=== PATIENT | female | born 1990 | race Caucasian/White ===

== ENCOUNTER 2018-10-22 10:12 | Emergency (ER) | payer OTHER ==
--- NOTE | 2018-10-22 10:47 | ED ---
General Adult HPI - General Chief complaint: Headache Stated complaint: ENT Time Seen by Provider: 10/22/18 10:15 Source: family, RN notes reviewed Mode of arrival: ambulatory Limitations: no limitations - History of Present Illness Initial comments: This is a 28-year-old female presents emergency Department complaining of a headache and pressure behind the right eye. Patient states this is consistent with her migraine headaches except for the fact that for the last 3 months she' s had it at some point every day. Patient states she also has a history of fibromyalgia and some various autoimmune disorder. Patient states she is also ALLERGIC to ketorolac Imitrex and antihistamines. Patient states she was post have CAT scan on Thursday of her sinuses but since she was on her. She didn't want ago. Patient states the pain is typical in the features of the headache are typical of her normal migraines. Patient thinks she has a sinus issue and that is why she is post get a CAT scan of her sinuses. Patient denies any change in vision patient denies any fever or chills patient denies any neck stiffness. Patient denies any chest pain difficulty breathing shortest breath. She denies any abdominal pain patient denies nausea vomiting diarrhea. - Related Data Home Medications Medication Instructions Recorded Confirmed ALPRAZolam [Xanax] 0.5 mg PO DAILY PRN 10/22/18 10/22/18 Gabapentin [Neurontin] 100 mg PO DAILY 10/22/18 10/22/18 Gabapentin [Neurontin] 200 mg PO HS 10/22/18 10/22/18 HYDROcodone/APAP 5-325MG [[place] 1 tab PO Q6H PRN 10/22/18 10/22/18 5-325] Ibuprofen [Motrin Ib] 800 mg PO Q6H PRN 10/22/18 10/22/18 Omeprazole 20 mg PO DAILY 10/22/18 10/22/18 Allergies Allergy/AdvReac Type Severity Reaction Status Date / Time Antihistamines - Alkylamine Allergy Anaphylaxis Verified 10/22/18 10:48 sumatriptan [From Imitrex] Allergy Anaphylaxis Verified 10/22/18 10:48 ketorolac [From Toradol] AdvReac Rapid Verified 10/22/18 10:48 Heart Rate prochlorperazine AdvReac Confusion Verified 10/22/18 10:48 [From Compazine] Review of Systems ROS Statement: Those systems with pertinent positive or pertinent negative responses have been documented in the HPI. ROS Other: All systems not noted in ROS Statement are negative. Past Medical History Past Medical History: Fibromyalgia History of Any Multi-Drug Resistant Organisms: None Reported Past Surgical History: No Surgical Hx Reported Past Psychological History: Anxiety Smoking Status: Current every day smoker Past Alcohol Use History: None Reported Past Drug Use History: Marijuana General Exam - General Exam Comments Initial Comments: GENERAL: Patient is well-developed and well-nourished. Patient is nontoxic and well- hydrated and is in mild distress. ENT: Neck is soft and supple. No significant lymphadenopathy is noted. Oropharynx is clear. Moist mucous membranes. Neck has full range of motion without eliciting any pain. EYES: The sclera were anicteric and conjunctiva were pink and moist. Extraocular movements were intact and pupils were equal round and reactive to light. Eyelids were unremarkable. PULMONARY: Unlabored respirations. Good breath sounds bilaterally. No audible rales rhonchi or wheezing was noted. CARDIOVASCULAR: There is a regular rate and rhythm without any murmurs gallops or rubs. SKIN: Skin is clear with no lesions or rashes and otherwise unremarkable. NEUROLOGIC: Patient is alert and oriented x3. Cranial nerves II through XII are grossly intact. Motor and sensory are also intact. Normal speech, volume and content. Symmetrical smile. MUSCULOSKELETAL: Normal extremities with adequate strength and full range of motion. LYMPHATICS: No significant lymphadenopathy is noted PSYCHIATRIC: Normal psychiatric evaluation. Limitations: no limitations Course Vital Signs 10/22/18 10:14 Temperature 98 F Pulse Rate 93 Respiratory 20 Rate Blood Pressure 136/90 O2 Sat by Pulse 99 Oximetry Medical Decision Making - Medical Decision Making Patient does not appear in very much distress at all. Patient states prior to arrival she took Motrin and Prilosec Equality and Xanax Patient's CT of the brain shows no acute abnormality. Patient's CT of the sinuses showed a cyst in the right maxillary sinus which she states has been there for years. But there is no acute sinusitis or mastoiditis. When I walked in the room the patient was eating crackers and drinking pop. Patient states that the old medical did help her headache slightly. Disposition Clinical Impression: Migraine Disposition: HOME SELF-CARE Condition: Good Instructions (If sedation given, give patient instructions): Acute Headache (ED ) Is patient prescribed a controlled substance at d/c from ED?: No Referrals: Salas Anglin MD [Primary Care Provider] - 1-2 days Time of Disposition: 12:19
--- NOTE | 2018-10-22 11:19 | CT ---
EXAMINATION TYPE: CT brain wo con DATE OF EXAM: 10/22/2018 COMPARISON: 11/07/2015 MRI INDICATION: sinusitis, pain behind Rt eye, migraine DLP: 1336.2 mGycm, Automated exposure control for dose reduction was used. CONTRAST: None CT of the brain is performed utilizing 3 mm thick sections through the posterior fossa and 3 mm thick sections through the remaining calvarium. Study is performed within 24 hours of arrival to the hosp ital. No abnormal hyperdensity is present to suggest an acute intracranial hemorrhage. No mass lesion is evident. No acute infarcts are evident. Ventricles and sulci are appropriate for the patient age. Paranasal sinuses and mastoid air cells within the [id number] are clear. IMPRESSIONS: 1. Normal CT Brain
--- NOTE | 2018-10-22 11:21 | CT ---
EXAMINATION TYPE: CT sinus wo con DATE OF EXAM: 10/22/2018 COMPARISON: CT brain same date HISTORY: sinusitis, pain behind Rt eye, migraine CT DLP: 1336.2 mGycm CONTRAST: 0 mL of Isovue 300 The paranasal sinuses are examined in the axial plane at 2 mm thick sections. Reconstructed images i n the coronal plane were obtained. There is dental amalgam scatter artifact There is a retention cyst within the inferior aspect of the right maxillary sinus. Left maxillary sin us is clear. The ethmoid air cells are clear. The sphenoid sinuses are clear. Left frontal sinus i s clear. Right frontal sinus is aplastic. Mastoid air cells are clear. The septum is evaluated. There is septal deviation to the right. The ostiomeatal units are patent. The globes appear symmetrical. Intraconal and extraconal fat appears unremarkable as visualized. Temp oromandibular junctions are. Orbital floors are extraocular muscles are unremarkable. IMPRESSIONS: 1. Retention cyst within the inferior right maxillary sinus. No suspicious changes of acute sinusiti s.
[2018-10-22] MEDS ORDERED: ACETAMINOPHEN IV (For NPO) 1,000 MG in EMPTY BAG 1 BAG IVPB STA (11:33)
[2018-10-22 12:50] VITALS: BP 113/72; PULSE 70; RESP 18; TEMP 98
== END 2018-10-22 12:50 | disposition home or self-care (01) ==
LOC: EC 10:12
DX: G43.909 Migraine, unspecified, not intractable, without status migrainosus (principal); J34.1 Cyst and mucocele of nose and nasal sinus; F41.9 Anxiety disorder, unspecified; F17.200 Nicotine dependence, unspecified, uncomplicated; Z79.899 Other long term (current) drug therapy; Z88.6 Allergy status to analgesic agent; Z88.8 Allergy status to other drugs, medicaments and biological substances
CPT/HCPCS: 70450; 70486; 99283; 96365; J0131

== ENCOUNTER 2018-11-26 09:18 | Emergency (ER) | payer OTHER ==
--- NOTE | 2018-11-26 10:34 | ED ---
General Adult HPI - General Chief complaint: Chest Pain Stated complaint: chest pain Time Seen by Provider: 11/26/18 09:39 Source: patient Mode of arrival: wheelchair Limitations: no limitations - History of Present Illness Initial comments: Dictation was produced using [employer] dictation software. please excuse any grammatical, word or spelling errors. Chief Complaint: 28-year-old female with past medical history of ankylosing spondylitis, fibromyalgia, Sjgren syndrome presents with chest pain. History of Present Illness: She is 28-year-old female she presents with chest pain. She has a history of costochondritis. Patient reports that her symptoms started after she was doing several months of housework. Patient states she gets this often. She was concerned because her pain did improve as quickly as it normally does. She reports that the pain is sharp and located at the sternal area. She does report that it's worse with inspiration. Denies any shortness of breath. Patient denies any rushing substernal chest pressure. No radiation to the shoulders or jaw. Patient has any cardiac disease. No specific diaphoresis. The ROS documented in this emergency department record has been reviewed and confirmed by me. Those systems with pertinent positive or negative responses have been documented in the HPI. All other systems are other negative and/or noncontributory. PHYSICAL EXAM: General Impression: Alert and oriented x3, not in acute distress HEENT: Normocephalic atraumatic, extra-ocular movements intact, pupils equal and reactive to light bilaterally, mucous membranes moist. Cardiovascular: Heart regular rate and rhythm, S1&S2 audible, no murmurs, rubs or gallops Chest: Lungs clear to auscultation bilaterally, no rhonchi, no wheeze, no rales Abdomen: Bowel sounds present, abdomen soft, non-tender, non-distended, no organomegaly Musculoskeletal: Pulses present and equal in all extremities, no peripheral edema Motor: no focal deficits noted Neurological: CN II-XII grossly intact, no focal motor or sensory deficits noted Skin: Intact with no visualized rashes Psych: Normal affect and mood ED course: 28yo Old female presents with chief complaint of chest pain. Patient has had episodes like these in the past. Chest pain is atypical in nature. There are no high-risk features. EKGs benign showing no signs of cardiac ischemia or infarction. Vital signs upon arrival are within acceptable limits. Patient's well-appearing at bedside. Reassurance provided. Patient reports th at she's had similar episodes like this before where she is prescribed Medrol Dosepak with improvement of symptoms. Patient does have good follow-up. Patient be discharged with prescription for Medrol Dosepak. Patient told to rest and she is advised to return to the emergency Department with worsening pain, shortness of breath. Patient understandable agreeable to plan. EKG interpretation: Ventricular rate 70, normal sinus rhythm, OK interval 144, care 60, QTC 419. No OK prolongation, no QTC prolongation, no ST or T-wave changes noted. . Overall, this EKG is unremarkable - Related Data Home Medications Medication Instructions Recorded Confirmed ALPRAZolam [Xanax] 0.5 mg PO DAILY PRN 10/22/18 11/26/18 HYDROcodone/APAP 5-325MG [[place] 1 tab PO Q6H PRN 10/22/18 11/26/18 5-325] Omeprazole 20 mg PO DAILY 10/22/18 11/26/18 Previous Rx's Medication Instructions Recorded methylPREDNISolone [Medrol Dose 4 mg PO DIRECTED #1 pack 11/26/18 Pack] Allergies Allergy/AdvReac Type Severity Reaction Status Date / Time Antihistamines - Alkylamine Allergy Anaphylaxis Verified 11/26/18 10:20 sumatriptan [From Imitrex] Allergy Anaphylaxis Verified 11/26/18 10:20 ketorolac [From Toradol] AdvReac Rapid Verified 11/26/18 10:20 Heart Rate prochlorperazine AdvReac Confusion Verified 11/26/18 10:20 [From Compazine] Review of Systems ROS Statement: Those systems with pertinent positive or pertinent negative responses have been documented in the HPI. ROS Other: All systems not noted in ROS Statement are negative. Past Medical History Past Medical History: Fibromyalgia Additional Past Medical History / Comment(s): ANKYLOSING SPONDYLITIS, NADIR DISC DISEASE. History of Any Multi-Drug Resistant Organisms: None Reported Past Surgical History: No Surgical Hx Reported Past Psychological History: Anxiety Smoking Status: Current every day smoker Past Alcohol Use History: None Reported Past Drug Use History: Marijuana General Exam Limitations: no limitations Course Vital Signs 11/26/18 09:28 Temperature 98.4 F Pulse Rate 87 Respiratory 16 Rate Blood Pressure 120/79 O2 Sat by Pulse 100 Oximetry Disposition Clinical Impression: Chest pain Disposition: HOME SELF-CARE Condition: Good Instructions (If sedation given, give patient instructions): Costochondritis (ED) Prescriptions: methylPREDNISolone [Medrol Dose Pack] 4 mg PO DIRECTED #1 pack Is patient prescribed a controlled substance at d/c from ED?: No Referrals: Salas Anglin MD [Primary Care Provider] - 1-2 days Time of Disposition: 10:34
[2018-11-26 10:49] VITALS: BP 113/73; PULSE 96; RESP 18; TEMP 98
[2018-11-26] MEDS ORDERED: LIDOCAINE 5% PATCH TOPICAL STA (10:49)
== END 2018-11-26 10:48 | disposition home or self-care (01) ==
LOC: EC 09:18
DX: R07.89 Other chest pain (principal); K21.9 Gastro-esophageal reflux disease without esophagitis; F17.200 Nicotine dependence, unspecified, uncomplicated; Z87.39 Personal history of other diseases of the musculoskeletal system and connective tissue; Z88.8 Allergy status to other drugs, medicaments and biological substances; Z88.6 Allergy status to analgesic agent
CPT/HCPCS: 93005; 99284

== ENCOUNTER → 2019-05-07 | Outpatient (CLI) | payer OTHER ==
--- NOTE | 2019-05-08 15:53 | MR ---
EXAMINATION TYPE: MR foot RT wo con DATE OF EXAM: 05/07/2019 COMPARISON: None HISTORY: Right foot pain TECHNIQUE: Multiplanar, multisequence imaging of the right foot is performed without IV contrast. FINDINGS: The visualized portions of the plantar aponeurosis are intact (its calcaneal origin is imaged on ankl e MRI). The visualized distal midfoot and forefoot segments of flexor, peroneal, and extensor tendons are int act. Nonweightbearing tarsometatarsal alignment within normal limits. Intact Lisfranc ligament. Small gang lion noted between the base of the second and third metatarsals. No fracture/stress fracture. No specific findings of ongoing osseous stress reaction. There is feathe ry edema without fatty atrophy of the plantar foot musculature. Collateral ligaments and plantar plate tissue at the metatarsophalangeal joints are grossly intact. IMPRESSION: 1. No ligamentous injury. 2. No fracture/stress fracture findings ongoing osseous stress response. 3. Low-level edema within the intrinsic musculature of the plantar foot is nonspecific and may be due to recent activity however denervation myositis can have a similar appearance.
--- NOTE | 2019-05-08 16:03 | MR ---
EXAMINATION TYPE: MR ankle RT wo con DATE OF EXAM: 05/07/2019 COMPARISON: None HISTORY: Right ankle pain TECHNIQUE: Multiplanar, multisequence images of the right ankle is performed without IV contrast. FINDINGS: Intact Achilles tendon and plantar fascia. Intact extensor, peroneal, posteromedial ankle tendons. No space-occupying lesion within the tarsal tunnel. Talofibular and calcaneofibular ligaments are intact. Deltoid ligament complex is intact. Intact spri ng ligament complex. No pathologic bone marrow signal placement. No evidence of acute fracture. Tibiotalar articular carti atilio is preserved. There is low-level edema without fatty atrophy within the posterior compartment musculature. IMPRESSION: 1. No ligamentous injury. 2. No fracture/stress fracture or findings of ongoing osseous stress response. 3. Low-level edema within the posterior compartment musculature of the ankle may be due to recent act ivity however denervation myositis could have a similar appearance.
== END | disposition home or self-care (01) ==
LOC: RADMRIMAIN 13:45
PROVIDERS: ATTEND Family Medicine
DX: S93.401D Sprain of unspecified ligament of right ankle, subsequent encounter (principal); R60.0 Localized edema

== ENCOUNTER 2021-02-02 11:52 | Emergency (ER) | payer OTHER ==
[2021-02-02] MEDS ORDERED: HYDROcodone/APAP 5-325MG 1 EACH TAB PO STA (12:27)
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
--- NOTE | 2021-02-02 13:44 | XR ---
Left shoulder HISTORY: Trauma and pain 3 views left shoulder There is slight superior displacement of the distal clavicle in relation to the acromion. Bone minera lization and joint spaces are otherwise maintained. Left lung apex as visualized is normal. IMPRESSION: Correlate for acromioclavicular separation.
[2021-02-02] MEDS ORDERED: SODIUM CHLORIDE 0.9% 1,000 ML IV STA (13:54)
[2021-02-02] MEDS ORDERED: RX INFO: IV CONTRAST WAS GIVEN 1 EACH MISC MISCELLANE PRN (13:54)
[2021-02-02 14:14] LABS: Basophils # (A) 0.1 k/uL (0-0.2); Basophils % (A) 1 %; Eosinophils # (A) 0.3 k/uL (0-0.7); Eosinophils % (A) 3 %; HCT 46.9 % (34.0-46.0); HGB 16.2 gm/dL (11.4-16.0); Lymphocytes % (A) 21 %; MCH 31.6 pg (25.0-35.0); MCHC 34.5 g/dL (31.0-37.0); MCV 91.5 fL (80.0-100.0); Mean Platelet Volume 7.7; Monocytes # (A) 0.5 k/uL (0-1.0); Monocytes % (A) 6 %; Neutrophils # (A) 6.2 k/uL (1.3-7.7); Neutrophils % (A) 68 %; Platelet Count 245 k/uL (150-450); RBC 5.13 m/uL (3.80-5.40); RDW 12.4 % (11.5-15.5); WBC 9.2 k/uL (3.8-10.6)
[2021-02-02 14:25] LABS: ALT 13 U/L (4-34); AST 22 U/L (14-36); African American GFR (CKD) >90 (>60 ml/min/1.73 sqM); Albumin 4.8 g/dL (3.5-5.0); Alkaline Phosphatase 64 U/L (38-126); Anion Gap 10 mmol/L; Blood Urea Nitrogen 16 mg/dL (7-17); Calcium 9.8 mg/dL (8.4-10.2); Carbon Dioxide 24 mmol/L (22-30); Chloride 104 mmol/L (98-107); Glucose 111 mg/dL (74-99); Non-African American GFR(CKD) >90 (>60 ml/min/1.73 sqM); Potassium 3.9 mmol/L (3.5-5.1); Sodium 138 mmol/L (137-145); Total Bilirubin 0.5 mg/dL (0.2-1.3); Total Protein 7.6 g/dL (6.3-8.2)
[2021-02-02 14:39] LABS: Partial Thromboplastin Time 24.5 sec (22.0-30.0); Prothrombin Time 10.7 sec (9.0-12.0)
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
[2021-02-02 15:33] VITALS: BP 132/75; PULSE 82; RESP 16; TEMP 97.9
== END 2021-02-02 15:30 | disposition home or self-care (01) ==
LOC: EC 11:52
DX: S43.109A Unspecified dislocation of unspecified acromioclavicular joint, initial encounter (principal); S16.1XXA Strain of muscle, fascia and tendon at neck level, initial encounter; S20.219A Contusion of unspecified front wall of thorax, initial encounter; F17.200 Nicotine dependence, unspecified, uncomplicated; F41.9 Anxiety disorder, unspecified; M79.7 Fibromyalgia; F12.90 Cannabis use, unspecified, uncomplicated; V49.9XXA Car occupant (driver) (passenger) injured in unspecified traffic accident, initial encounter
CPT/HCPCS: 36415; 80053; 85025; 85610; 85730; 71120; 72072; 73030; 71046; 71260; 99284; 96360; Q9967

== ENCOUNTER 2022-05-08 18:24 | Emergency (ER) | payer OTHER ==
[2022-05-08 18:45] VITALS: BP 145/98; PULSE 100; RESP 18; TEMP 98.1
--- NOTE | 2022-05-08 19:12 | XR ---
Result: Clinical History: Index finger injury. Comparison: None available. Technique: 3 views of the right hand. Findings: No acute fracture or dislocation is seen. The visualized osseous structures are in anatomic alignmen t. The joint spaces are preserved. There is no definite radiopaque foreign body seen. There is soft tissue irregularity/wound about the index finger proximal phalanx. Impression: Soft tissue wound without acute osseous abnormality or radiopaque foreign body.
[2022-05-08] MEDS ORDERED: DIPH,PERTUS(ACELL)TETVAC-LF 0.5 ML VIAL IM ONE (20:56)
[2022-05-08] MEDS ORDERED: LIDOCAINE/EPINEPHR/TETRACAINE 5 ML BOTTLE TOPICAL ONE ×2 (20:56→21:01)
[2022-05-08] MEDS ORDERED: TOPICAL SKIN ADHESIVE 1 EACH AMP TOPICAL ONE (21:16)
--- NOTE | 2022-05-08 21:32 | ED ---
Wound/Laceration HPI - General Chief Complaint: Wound/Laceration Stated Complaint: right hand injury Time Seen by Provider: 05/08/22 18:52 Source: patient Mode of arrival: ambulatory Limitations: no limitations - History of Present Illness Initial Comments: Patient is a 32-year-old female presenting with chief complaint of Laceration to the right hand. Patient was cleaning a coffee mug when the mug broke, causing her to sustain a small laceration over the knuckle of the 2nd digit. Patient is complaining of swelling and some tenderness. She has some limited range of motion secondary to swelling and pain. No numbness, tingling, weakness. Patient does not remember when her last tetanus shot was. - Related Data Home Medications Medication Instructions Recorded Confirmed ALPRAZolam [Xanax] 0.5 mg PO BID PRN 10/22/18 02/02/21 HYDROcodone/APAP 5-325MG [[place] 1 tab PO DAILY PRN 10/22/18 02/02/21 5-325] Cyclobenzaprine [Flexeril] 10 mg PO DAILY 02/02/21 02/02/21 Ergocalciferol (Vitamin D2) 1,250 mcg PO MO 02/02/21 02/02/21 [Drisdol (50,000 Iu)] Famotidine 20 mg PO BID 02/02/21 02/02/21 Ibuprofen [Motrin Ib] 800 mg PO Q8H PRN 02/02/21 02/02/21 Mupirocin 2% Oint [Bactroban 2% 1 applic TOPICAL BID 02/02/21 02/02/21 Oint] Naproxen [Naprosyn] 500 mg PO BID PRN 02/02/21 02/02/21 Triamcinolone 0.1% Ointment 1 applic TOPICAL BID 02/02/21 02/02/21 [Kenalog 0.1% Ointment] Allergies Allergy/AdvReac Type Severity Reaction Status Date / Time Antihistamines - Alkylamine Allergy Anaphylaxis Verified 05/08/22 18:45 sumatriptan [From Imitrex] Allergy Anaphylaxis Verified 05/08/22 18:45 ketorolac [From Toradol] AdvReac Rapid Verified 05/08/22 18:45 Heart Rate prochlorperazine AdvReac Confusion Verified 05/08/22 18:45 [From Compazine] Review of Systems ROS Statement: Those systems with pertinent positive or pertinent negative responses have been documented in the HPI. ROS Other: All systems not noted in ROS Statement are negative. Past Medical History Past Medical History: Fibromyalgia Additional Past Medical History / Comment(s): ANKYLOSING SPONDYLITIS, NADIR DISC DISEASE. SJogren's, Reynauds' History of Any Multi-Drug Resistant Organisms: None Reported Past Surgical History: No Surgical Hx Reported Past Psychological History: Anxiety Smoking Status: Current every day smoker Past Alcohol Use History: Occasional Past Drug Use History: Marijuana General Exam Limitations: no limitations General appearance: alert, in no apparent distress Head exam: Present: atraumatic, normocephalic, normal inspection Eye exam: Present: normal appearance, EOMI. Absent: scleral icterus, periorbital swelling Neck exam: Present: normal inspection Right Hand Wrist exam: Present: tenderness (Knuckle of second digit), swelling (Knuckle of second digit), laceration (2 cm superficial laceration over the knuckle of the second digit). Absent: full ROM (Limited range of motion of the second digit secondary to pain and swelling), erythema Neuro motor exam: Present: fingers 2-5 abduction intact Vascular: Absent: vascular compromise Neurological exam: Present: alert, oriented X3, CN II-XII intact Psychiatric exam: Present: normal affect, normal mood Skin exam: Present: warm, dry, intact, normal color. Absent: rash Course Vital Signs 05/08/22 18:42 Temperature 98.1 F Pulse Rate 100 Respiratory 18 Rate Blood Pressure 145/98 O2 Sat by Pulse 98 Oximetry Medical Decision Making - Medical Decision Making Patient is a 32-year-old female presenting for chief complaint of laceration over the knuckle of the right second digit. Patient was cleaning a coffee cup when it broke and cut her. There is a superficial 2 cm laceration. Patient has somewhat limited range of motion secondary to pain and swelling, full sensation and no vascular compromise. Wound was irrigated with sterile water. Patient's tetanus was updated. Wound was closed using fexofenadine and Steri-Strips. Educated on wound care. Follow-up with PCP. Report back to ER with any new or worsening symptoms. Discussed return parameters and answered all questions. Patient conveyed verbal understanding and agreed to the plan. I discussed this case with my attending Dr. Hess. Disposition Clinical Impression: Laceration Disposition: HOME SELF-CARE Condition: Good Instructions (If sedation given, give patient instructions): Laceration (ED), Finger Laceration (ED), Skin Adhesive Care (ED) Additional Instructions: Keep the wound clean, dry, covered. Do not use ointment based products such as Neosporin. Avoid completely emerging the wound. Wash with soap and water. Keep Steri-Strips on until they fall off on their own. Follow-up with PCP. Report back to ER if any new or worsening symptoms. Take Motrin and Tylenol as needed for pain control. Is patient prescribed a controlled substance at d/c from ED?: No Referrals: Bebeto Mcgregor MD [Primary Care Provider] - 1-2 days Time of Disposition: 21:32
== END 2022-05-08 21:46 | disposition home or self-care (01) ==
LOC: EC 18:24
DX: S61.411A Laceration without foreign body of right hand, initial encounter (principal); F17.200 Nicotine dependence, unspecified, uncomplicated; Z23 Encounter for immunization; Z88.9 Allergy status to unspecified drugs, medicaments and biological substances; Z88.6 Allergy status to analgesic agent; W26.8XXA Contact with other sharp object(s), not elsewhere classified, initial encounter
CPT/HCPCS: 90471; 90715; 99283

== ENCOUNTER 2023-03-24 08:19 | Emergency (ER) | payer OTHER ==
--- NOTE | 2023-03-24 08:56 | ED ---
Lower Extremity Injury HPI - General Chief Complaint: Extremity Injury, Lower Stated Complaint: Left leg injury Time Seen by Provider: 03/24/23 08:26 Source: patient, RN notes reviewed Mode of arrival: ambulatory Limitations: no limitations - History of Present Illness Initial Comments: This is a 33-year-old female who presents to the emergency department for left leg pain. States that yesterday at work, she was pulling down a wooden pallet, and it subsequently fell and hit her in back of the left leg. She has since had pain, swelling, and bruising to this area. Her largest concern is ruling out a DVT. States that she has multiple autoimmune problems. She's not any blood thinners. Denies any history of DVTs. Denies any fevers, chills, sore throat, cough, dyspnea, chest pain, palpitations, abdominal pain, nausea, vomiting, diarrhea, back pain, or headaches. MD Complaint: leg injury - Related Data Home Medications Medication Instructions Recorded Confirmed ALPRAZolam [Xanax] 0.5 mg PO BID PRN 10/22/18 02/02/21 HYDROcodone/APAP 5-325MG [[place] 1 tab PO DAILY PRN 10/22/18 02/02/21 5-325] Cyclobenzaprine [Flexeril] 10 mg PO DAILY 02/02/21 02/02/21 Ergocalciferol (Vitamin D2) 1,250 mcg PO MO 02/02/21 02/02/21 [Drisdol (50,000 Iu)] Famotidine 20 mg PO BID 02/02/21 02/02/21 Ibuprofen [Motrin Ib] 800 mg PO Q8H PRN 02/02/21 02/02/21 Mupirocin 2% Oint [Bactroban 2% 1 applic TOPICAL BID 02/02/21 02/02/21 Oint] Naproxen [Naprosyn] 500 mg PO BID PRN 02/02/21 02/02/21 Triamcinolone 0.1% Ointment 1 applic TOPICAL BID 02/02/21 02/02/21 [Kenalog 0.1% Ointment] Allergies Allergy/AdvReac Type Severity Reaction Status Date / Time Antihistamines - Alkylamine Allergy Anaphylaxis Verified 03/24/23 08:32 sumatriptan [From Imitrex] Allergy Anaphylaxis Verified 03/24/23 08:32 ketorolac [From Toradol] AdvReac Rapid Verified 03/24/23 08:32 Heart Rate prochlorperazine AdvReac Confusion Verified 03/24/23 08:32 [From Compazine] Review of Systems ROS Statement: Those systems with pertinent positive or pertinent negative responses have been documented in the HPI. ROS Other: All systems not noted in ROS Statement are negative. Past Medical History Past Medical History: Fibromyalgia Additional Past Medical History / Comment(s): ANKYLOSING SPONDYLITIS, NADIR DISC DISEASE. SJogren's, Reynauds' History of Any Multi-Drug Resistant Organisms: None Reported Past Surgical History: No Surgical Hx Reported Past Psychological History: Anxiety Smoking Status: Current every day smoker Past Alcohol Use History: Occasional Past Drug Use History: Marijuana General Exam Limitations: no limitations General appearance: alert, in no apparent distress Head exam: Present: atraumatic, normocephalic, normal inspection Respiratory exam: Present: normal lung sounds bilaterally. Absent: respiratory distress, wheezes, rales, rhonchi, stridor Cardiovascular Exam: Present: regular rate, normal rhythm, normal heart sounds. Absent: systolic murmur, diastolic murmur, rubs, gallop, clicks Extremities exam: Present: other (Tenderness and ecchymosis to the left popliteal fossa extending distally. There is no erythema of the left lower extremity. There is generalized swelling. 2+ DP and PT pulses. Capillary refill less than 1 second.) Neurological exam: Present: alert, oriented X3, CN II-XII intact Psychiatric exam: Present: normal affect, normal mood Course Vital Signs 03/24/23 08:30 Temperature 98.5 F Pulse Rate 95 Respiratory 18 Rate Blood Pressure 137/98 O2 Sat by Pulse 96 Oximetry Medical Decision Making - Medical Decision Making This is a 33-year-old female who presents to the emergency department for left leg pain. Was pt. sent in by a medical professional or institution? @ -No Did you speak to anyone other than the patient for history? @ -No Did you review nursing and triage notes? @ -Yes, and I agree, it is accurate with regards to the patient's symptoms. Were old charts reviewed? @ -No Differential Diagnosis? @ -Differential Leg Pain: Leg fracture, leg sprain, DVT, PVD, arterial insufficiency, iliac artery aneurysm, cellulitis, compartment syndrome, tendinopathy, nerve entrapment, piriformis syndrome, osteoarthritis, rhabdomyolysis, myositis, cramping from an electrolyte imbalance, this is not meant to be an all inclusive list. EKG interpreted by me (3pts min.)? @ -Not obtained X-rays interpreted by me (1pt min.)? @ -Not obtained CT interpreted by me (1pt min.)? @ -Not obtained U/S interpreted by me (1pt. min.)? @ -Duplex US of the left lower extremity obtained. My interpretation identifies no evidence of a DVT. What testing was considered but not performed? (CT, X-rays, U/S, labs)? Why? @ -None What meds were considered but not given? Why? @ -None Did you discuss the management of the patient with other professionals? @ -No Did you reconcile home meds? @ -No Was smoking cessation discussed for >3mins.? @ -No Was critical care preformed (if so, how long)? @ -No Were there social determinants of health that impacted care today? How? (Homelessness, low income, unemployed, alcoholism, drug addiction, transportation, low edu. Level, literacy, decrease access to med. care, retirement, rehab)? @ -No Was there de-escalation of care discussed even if they declined? (Discuss DNR or withdrawal of care, Hospice)? @ -No What co-morbidities impacted this encounter? (DM, HTN, Smoking, COPD, CAD, Cancer, CVA, Hep., AIDS, mental health diagnosis, sleep apnea, morbid obesity)? @ -Fibromyalgia, autoimmune problems Was patient admitted / discharged? @ -Discharged. The left lower extremity had diffuse ecchymosis and minor swelling. There is no erythema or increased heat to suggest signs of a DVT. This was discussed with the patient, however she wishes to proceed with an ultrasound. Duplex ultrasound of the left lower extremity obtained revealing no evidence of a DVT or other acute process. She does still have full range of motion of the left lower extremity and is able to ambulate. She declined the need for any x-rays. Patient advised of the negative results and she was discharged home in stable condition. Ibuprofen provided before discharge per the patient's request. Undiagnosed new problem with uncertain prognosis? @ -None Drug Therapy requiring intensive monitoring for toxicity (Heparin, Nitro, Insulin, Cardizem)? @ -None Were any procedures done? @ -None Diagnosis/symptom? @ -Left leg injury Acute, or Chronic, or Acute on Chronic? @ -Acute Uncomplicated (without systemic symptoms) or Complicated (systemic symptoms)? @ -Uncomplicated Side effects of treatment? @ -None Exacerbation, Progression, or Severe Exacerbation] @ -Not applicable Poses a threat to life or bodily function? @ -No Return precautions reviewed in depth, the patient is instructed to return to the emergency department with any new, worsening, or concerning symptoms. Patient verbalized understanding. This case was discussed in detail with the attending ED physician, Dr. Warren. Presentation, findings, and treatment plan discussed in detail as well. - Radiology Data Radiology results: report reviewed, image reviewed Disposition Clinical Impression: Left leg injury Disposition: HOME SELF-CARE Instructions (If sedation given, give patient instructions): Crush Injury (ED) Additional Instructions: Return to the emergency department with any new, worsening, or concerning symptoms. Follow up with your primary care provider in 1-2 days. Is patient prescribed a controlled substance at d/c from ED?: No Referrals: Deshawn Zapata DO [Primary Care Provider] - 1-2 days
--- NOTE | 2023-03-24 10:05 | US ---
EXAMINATION TYPE: US venous doppler duplex LE LT DATE OF EXAM: 03/24/2023 9:53 AM COMPARISON: NONE CLINICAL INDICATION: Female, 33 years old with history of Left leg pain and swelling; Patient states dropping a pallet on her leg. No redness. Bruising. Not on blood thinners. SIDE PERFORMED: Left TECHNIQUE: The lower extremity deep venous system is examined utilizing real time linear array sonog andres with graded compression, doppler sonography and color-flow sonography. VESSELS IMAGED: Common Femoral Vein Deep Femoral Vein Greater Saphenous Vein * Femoral Vein Popliteal Vein Small Saphenous Vein * Proximal Calf Veins (* superficial vessels) Left Leg: Negative for DVT IMPRESSION: Grayscale, color doppler, spectral doppler imaging performed of the deep veins of the lo wer extremities. There is normal flow, compressibility, vascular waveforms.
[2023-03-24] MEDS ORDERED: IBUPROFEN 800 MG TAB PO STA (10:18)
[2023-03-24 10:25] VITALS: BP 143/95; PULSE 89; RESP 16; TEMP 98
== END 2023-03-24 10:25 | disposition home or self-care (01) ==
LOC: EC 08:19
DX: S89.92XA Unspecified injury of left lower leg, initial encounter (principal); F41.9 Anxiety disorder, unspecified; F12.90 Cannabis use, unspecified, uncomplicated; F17.200 Nicotine dependence, unspecified, uncomplicated; Z79.899 Other long term (current) drug therapy; Z88.8 Allergy status to other drugs, medicaments and biological substances; W22.8XXA Striking against or struck by other objects, initial encounter
CPT/HCPCS: 99284

== ENCOUNTER 2024-09-28 03:49 | Emergency (ER) | payer OTHER ==
[2024-09-28 03:54] VITALS: RESP 18
[2024-09-28] MEDS: AMOXIC-POT CLAV 875-125MG 1 EACH TAB PO STA (04:47)
[2024-09-28] MEDS: ACETAMINOPHEN TAB 325 MG TAB PO STA (04:48)
[2024-09-28] MEDS: LOPERAMIDE 2 MG CAP PO STA (04:49)
[2024-09-28] MEDS: HYDROcodone/APAP 10-325MG 1 EACH TAB PO ONE (04:49)
[2024-09-28] MEDS: LIDOCAINE VISCOUS 2% 15 ML CUP MUCOUS MEM ONE (04:50)
[2024-09-28] MEDS: ONDANSETRON ODT 4 MG TAB PO STA (04:50)
[2024-09-28 06:03] VITALS: TEMP 97.6
--- NOTE | 2024-09-28 06:33 | ED ---
General Adult HPI - General Chief complaint: Dental/Oral Stated complaint: Tooth Pain Time Seen by Provider: 09/28/24 03:57 Source: patient Mode of arrival: ambulatory Limitations: no limitations - History of Present Illness Initial comments: Pt is a 34 y/o female w/ PMH fibromyalgia, ankylosing spondyolysis, sjogren's disease persenting today for dental pain. Pt states over the course of the last year her teeth have been rotting and falling out due to her Sjogren's syndrome. She has seen multiple dentists however her insurance will not pay for her to have her teeth removed so it would cost her $6000 to have her teeth removed, which she cannot afford. She has been taking tylenol for pain w/ relief. She states she feels hot like she has a fever and thinks feeling this way could also be 2/2 pain. Has not measured a fever at home. One of her teeth cracked off an fell out this morning. She endorses jaw pain and associated pain in her ears. Endorses chronic abdominal pain, diarrhea. Denies nausea/vomiting. Denies difficulty breathing or swallowing. - Related Data Home Medications Medication Instructions Recorded Confirmed ALPRAZolam [Xanax] 0.5 mg PO BID PRN 10/22/18 02/02/21 HYDROcodone/APAP 5-325MG [Armada 1 tab PO DAILY PRN 10/22/18 02/02/21 5-325] Cyclobenzaprine [Flexeril] 10 mg PO DAILY 02/02/21 02/02/21 Ergocalciferol (Vitamin D2) 1,250 mcg PO MO 02/02/21 02/02/21 [Drisdol (50,000 Iu)] Famotidine 20 mg PO BID 02/02/21 02/02/21 Ibuprofen [Motrin Ib] 800 mg PO Q8H PRN 02/02/21 02/02/21 Mupirocin 2% Oint [Bactroban 2% 1 applic TOPICAL BID 02/02/21 02/02/21 Oint] Naproxen [Naprosyn] 500 mg PO BID PRN 02/02/21 02/02/21 Triamcinolone 0.1% Ointment 1 applic TOPICAL BID 02/02/21 02/02/21 [Kenalog 0.1% Ointment] Previous Rx's Medication Instructions Recorded Amoxic-Pot Clav 875-125Mg 1 tab PO Q12HR 10 Days #20 tab 09/28/24 [Augmentin 875-125] Allergies Allergy/AdvReac Type Severity Reaction Status Date / Time Antihistamines - Alkylamine Allergy Anaphylaxis Verified 09/28/24 03:51 sumatriptan [From Imitrex] Allergy Anaphylaxis Verified 09/28/24 03:51 ketorolac [From Toradol] AdvReac Rapid Verified 09/28/24 03:51 Heart Rate prochlorperazine AdvReac Confusion Verified 09/28/24 03:51 [From Compazine] Review of Systems ROS Statement: Those systems with pertinent positive or pertinent negative responses have been documented in the HPI. ROS Other: All systems not noted in ROS Statement are negative. Past Medical History Past Medical History: Fibromyalgia Additional Past Medical History / Comment(s): ANKYLOSING SPONDYLITIS, NADIR DISC DISEASE. SJogren's, Reynauds' History of Any Multi-Drug Resistant Organisms: None Reported Past Surgical History: No Surgical Hx Reported Past Psychological History: Anxiety Smoking Status: Current every day smoker Past Alcohol Use History: Occasional Past Drug Use History: Marijuana General Exam - General Exam Comments Initial Comments: PE: CONSTITUTIONAL: [no apparent distress, well appearing] SKIN: [warm, dry, no jaundice, hives or petechiae] EYES:[ pupils are equally round, extraocular movements intact without nystagmus, clear conjunctiva, non-icteric sclera] HENT: [normocephalic, atraumatic, moist mucus membranes, oropharynx clear without exudates, edentulous along lateral aspects of mouth bilaterally, teeth in anterior portion of mouth are black/green, cracked, gingiva is receding, no abscesses or fluctuance, no swelling, no swelling, erythema or fluctuance to submandibular region, no trismus] NECK: , [Full range of motion, normal appearance] PULMONARY: [clear to auscultation without wheezes, rhonchi, or rales, normal excursion, no accessory muscle use and no stridor] CARDIOVASCULAR:[ regular rate, rhythm, normal S1 and S2. No appreciated murmurs, rubs or gallops. Strong radial pulses with intact distal perfusion. No lower extremity edema] GASTROINTESTINAL: [soft, active bowel sounds throughout, non-tender, non- distended, no palpable masses, no rebound or guarding. No hepatosplenomegaly] MUSCULOSKELETAL: [Extremities have no gross deformity, no edema, redness, or swelling. No calf swelling ] NEUROLOGIC: [_a/o x 3, GCS 15, normal mentation and speech. Moves all extremities x 4 without motor or sensory deficit] PSYCHIATRIC:[ _normal mood and affect, thought process is clear and linear] Limitations: no limitations Course Vital Signs 09/28/24 09/28/24 09/28/24 03:51 06:02 06:43 Temperature 98.7 F 97.6 F 97.6 F Pulse Rate 101 H 89 Respiratory 18 18 Rate Blood Pressure 153/99 130/79 O2 Sat by Pulse 98 99 Oximetry Medical Decision Making - Medical Decision Making Was pt. sent in by a medical professional or institution (, ANTHONY, MANAGER GARAGE, urgent care, hospital, or long-term...) When possible be specific @ -[No] Did you speak to anyone other than the patient for history (EMS, parent, family, police, friend...)? What history was obtained from this source @ -[No] Did you review nursing and triage notes (agree or disagree)? Why? @ -[I reviewed nursing and triage notes] Were old charts reviewed (outside hosp., previous admission, EMS record, old EKG, old radiological studies, urgent care reports/EKG's, long-term records)? Report findings @ -[Medical records reviewed] Differential Diagnosis (chest pain, altered mental status, abdominal pain women, abdominal pain men, vaginal bleeding, weakness, fever, dyspnea, syncope, headache, dizziness, GI bleed, back pain, seizure, CVA, palpatations, mental health, musculoskeletal)? Differential diagnosis remains broad however top considerations include gingivitis, ANUG, dental abscess, dental caries, this is not an allinclusive list EKG interpreted by me (3pts min.). @ -[As above] X-rays interpreted by me (1pt min.). @ -[None done] CT interpreted by me (1pt min.). @ -[None done] U/S interpreted by me (1pt. min.). @ -[None done] What testing was considered but not performed or refused? (CT, X-rays, U/S, labs)? Why? @ -[None] What meds were considered but not given or refused? Why? @ -[None] Did you discuss the management of the patient with other professionals (professionals i.e. , PA, MANAGER GARAGE, lab, RT, psych nurse, social psychologist, bail bondsman, teacher, special officer, human services case manager)? Give summary @ -[No] Was smoking cessation discussed for >3mins.? @ -[No] Was critical care preformed (if so, how long)? @ -[No] Were there social determinants of health that impacted care today? How? (Homelessness, low income, unemployed, alcoholism, drug addiction, transportation, low edu. Level, literacy, decrease access to med. care, long-term, rehab)? decreased access to medical care Was there de-escalation of care discussed even if they declined (Discuss DNR or withdrawal of care, Hospice)? @ -[No] What co-morbidities impacted this encounter? (DM, HTN, Smoking, COPD, CAD, Cancer, CVA, ARF, Chemo, Hep., AIDS, mental health diagnosis, sleep apnea, morbid obesity)? @ -Sjogren's disease Was patient admitted / discharged? Hospital course, mention meds given and route, prescriptions, significant lab abnormalities, going to OR and other pertinent info. Discharged- Pt is a pleasant 34 y/o female presenting today for dental pain. VS w/in acceptable limits on arrival. Pt afebrile. Undiagnosed new problem with uncertain prognosis? @ -[No] Drug Therapy requiring intensive monitoring for toxicity (Heparin, Nitro, Insulin, Cardizem)? @ -[No] Were any procedures done? @ -[No] Diagnosis/symptom? @ -[default] Acute, or Chronic, or Acute on Chronic? @ -[default] Uncomplicated (without systemic symptoms) or Complicated (systemic symptoms)? @ -[default] Side effects of treatment? @ -[No] Exacerbation, Progression, or Severe Exacerbation? @ -[No] Poses a threat to life or bodily function? How? (Chest pain, USA, [place], pneumonia, PE, COPD, DKA, ARF, appy, cholecystitis, CVA, Diverticulitis, Homicidal, Suicidal, threat to staff... and all critical care pts) @ -[No] Disposition Clinical Impression: Acute necrotizing ulcerative gingivitis Disposition: HOME SELF-CARE Condition: Good Instructions (If sedation given, give patient instructions): Toothache (ED) Additional Instructions: Every disease is a spectrum and a small chance still exists that a serious condition could develop, for this reason, please monitor yourself closely for new, changing or worsening symptoms, symptoms that do not improve with completion of antibiotics, worsening areas of swelling along your gums, difficulty swallowing or swelling underneath your tongue, difficulty in breathing due to swelling fever, inability to tolerate/keep down fluids or your medications, inability to follow up with outpatient providers as instructed and should you experience these symptoms or should you have any further concerns for your wellbeing please return to the ED or call 911 immediately. Please perform salt water mouthwashes every 6 hours. Take antibiotics as prescribed. Your pain can be treated with ibuprofen and acetaminophen. You can take up to 400-600 mg of ibuprofen (Advil, Motrin) 3 times daily (every 8 hours) but can also use lower doses if this relieves your pain. Some people prefer naproxen (Aleve, Naprosyn) which can be taken in doses of 500 mg up to twice a day. Do not take both of these medicines together, and do not combine either with ketorolac (Toradol), meloxicam (Mobic), or indomethacin (Tivorbex). Some people can develop stomach discomfort with higher doses of either ibuprofen or naproxen, if this develops decrease your dose or stop taking it. If you need to take this dose daily for more than a week, please schedule an appointment for re-evaluation with your PCP. Please take these medications with food. You can take up to 1000 mg of acetaminophen (Tylenol) every 6 hours. Be careful as this is included in some medicines like Nyquil, Armada, Percocet, Vicodin, STANBACK, Goody's Powders, and Excedrin. You can also use lidocaine patches for topical pain. You can purchase 4% patches over the counter at most drug stores. These can be helpful for pain from your muscles or bones. Please call Dr. Gallagher's office after 8 AM at [phone] for next available appointment. PLEASE call your primary care physician as soon as possible to arrange / discuss plan for followup appointment. Appointment in the next 1-3 days is strongly encouraged if possible. PLEASE let us know here before you leave if there is anything further we can do to be of any assistance. Take care and feel Better! Prescriptions: Amoxic-Pot Clav 875-125Mg [Augmentin 875-125] 1 tab PO Q12HR 10 Days #20 tab Is patient prescribed a controlled substance at d/c from ED?: No Referrals: Deshawn Zapata DO [Primary Care Provider] - 1-2 days Cristofer Gallagher DDS [STAFF PHYSICIAN] - 1-2 days
[2024-09-28 06:44] VITALS: BP 130/79; PULSE 89
== END 2024-09-28 06:44 | disposition home or self-care (01) ==
LOC: EC 03:49
DX: A69.1 Other Vincent's infections (principal); M35.00 Sjogren syndrome, unspecified; F17.200 Nicotine dependence, unspecified, uncomplicated; Z88.8 Allergy status to other drugs, medicaments and biological substances
CPT/HCPCS: 99284

== ENCOUNTER 2024-09-28 16:50 | Inpatient (IN) | payer MEDICAID, OTHER ==
--- NOTE | 2024-09-28 17:47 | ED ---
General Adult HPI - General Chief complaint: Psychiatric Symptoms Stated complaint: heart racing, mental health Time Seen by Provider: 09/28/24 17:06 Source: patient, family, RN notes reviewed, old records reviewed Mode of arrival: ambulatory Limitations: no limitations - History of Present Illness Initial comments: 34-year-old female presenting with anxiety, depression, suicidal thoughts. She admits to having anger issues. She is currently dealing with poor dental care and is unable to get her teeth taken care of properly due to insurance issues. She has multiple autoimmune conditions and reports that this is significantly worsening her teeth rapidly. She is frustrated and has having increased anxiety, depression, oral pain and suicidal thoughts. Patient was seen by oral surgery earlier today. - Related Data Home Medications Medication Instructions Recorded Confirmed ALPRAZolam [Xanax] 0.5 mg PO BID 10/22/18 09/28/24 HYDROcodone/APAP 5-325MG [[place] 1 tab PO TID PRN 10/22/18 09/28/24 5-325] Chlorhexidine Gluconate [Peridex] 15 ml PO BID 09/28/24 09/28/24 FLUoxetine HCL [PROzac] 40 mg PO DAILY 09/28/24 09/28/24 Ondansetron Odt [Zofran Odt] 4 mg PO BID 09/28/24 09/28/24 lamoTRIgine [LaMICtal] 100 mg PO DAILY 09/28/24 09/28/24 Previous Rx's Medication Instructions Recorded Amoxic-Pot Clav 875-125Mg 1 tab PO Q12HR 10 Days #20 tab 09/28/24 [Augmentin 875-125] Allergies Allergy/AdvReac Type Severity Reaction Status Date / Time Antihistamines - Alkylamine Allergy Anaphylaxis Verified 09/28/24 18:41 sumatriptan [From Imitrex] Allergy Anaphylaxis Verified 09/28/24 18:41 ketorolac [From Toradol] AdvReac Rapid Verified 09/28/24 18:41 Heart Rate prochlorperazine AdvReac Confusion Verified 09/28/24 18:41 [From Compazine] Review of Systems ROS Statement: Those systems with pertinent positive or pertinent negative responses have been documented in the HPI. ROS Other: All systems not noted in ROS Statement are negative. Past Medical History Past Medical History: Fibromyalgia Additional Past Medical History / Comment(s): ANKYLOSING SPONDYLITIS, NADIR DISC DISEASE. SJogren's, Reynauds' History of Any Multi-Drug Resistant Organisms: None Reported Past Surgical History: No Surgical Hx Reported Past Psychological History: Anxiety, Bipolar, Depression Smoking Status: Current every day smoker Past Alcohol Use History: Occasional Past Drug Use History: Marijuana General Exam Limitations: no limitations General appearance: alert, in no apparent distress, anxious Head exam: Present: atraumatic, normocephalic Eye exam: Present: normal appearance, PERRL, EOMI ENT exam: Present: other (Poor dentition) Respiratory exam: Present: normal lung sounds bilaterally. Absent: respiratory distress Cardiovascular Exam: Present: regular rate, normal rhythm GI/Abdominal exam: Present: soft. Absent: distended, tenderness Neurological exam: Present: alert, oriented X3, CN II-XII intact. Absent: motor sensory deficit Psychiatric exam: Present: depressed, agitated, anxious, suicidal ideation Skin exam: Present: warm, dry, intact Course Vital Signs 09/28/24 16:55 Temperature 98 F Pulse Rate 81 Respiratory 20 Rate Blood Pressure 155/100 O2 Sat by Pulse 98 Oximetry Medical Decision Making - Medical Decision Making Was pt. sent in by a medical professional or institution (ANTHONY Sosa, WELFARE DIRECTOR, urgent care, hospital, or intermediate...) When possible be specific @ -No Did you speak to anyone other than the patient for history (EMS, parent, family, police, friend...)? What history was obtained from this source @ -No Did you review nursing and triage notes (agree or disagree)? Why? @ -I reviewed and agree with nursing and triage notes Were old charts reviewed (outside hosp., previous admission, EMS record, old EKG, old radiological studies, urgent care reports/EKG's, intermediate records)? Report findings @ -No old charts were reviewed Differential Mental Health Depression, anxiety, bipolar, psychosis, schizophrenia, borderline personality, situational depression, adjustment disorder, behavioral disorder, brain tumor, malingering, substance abuse, encephalopathy, medication reaction, dementia, hypothyroidism, degenerative neurologic disorder, lupus.... This is not meant to be all-inclusive list EKG interpreted by me (3pts min.). @ -As above X-rays interpreted by me (1pt min.). @ -None done CT interpreted by me (1pt min.). @ -None done U/S interpreted by me (1pt. min.). @ -None done What testing was considered but not performed or refused? (CT, X-rays, U/S, labs)? Why? @ -None What meds were considered but not given or refused? Why? @ -None Did you discuss the management of the patient with other professionals (professionals i.e. Dr., PA, WELFARE DIRECTOR, lab, RT, psych nurse, social studies teacher, fabricator assembler metal products, teacher, deputy juvenile officer, correctional counselor/case manager)? Give summary @ -No Was smoking cessation discussed for >3mins.? @ -No Was critical care preformed (if so, how long)? @ -No Were there social determinants of health that impacted care today? How? (Homelessness, low income, unemployed, alcoholism, drug addiction, transportation, low edu. Level, literacy, decrease access to med. care, [facility], rehab)? @ -No Was there de-escalation of care discussed even if they declined (Discuss DNR or withdrawal of care, Hospice)? DNR status @ -No What co-morbidities impacted this encounter? (DM, HTN, Smoking, COPD, CAD, Cancer, CVA, ARF, Chemo, Hep., AIDS, mental health diagnosis, sleep apnea, morbid obesity)? @ -None Was patient admitted / discharged? Hospital course, mention meds given and route , prescriptions, significant lab abnormalities, going to OR and other pertinent info. @ -Patient medically cleared awaiting EPS evaluation. Patient was evaluated by EPS and felt to require inpatient psychiatric admission. I do agree with this assessment. Patient will be admitted to this institution. Undiagnosed new problem with uncertain prognosis? @ -No Drug Therapy requiring intensive monitoring for toxicity (Heparin, Nitro, Insulin, Cardizem)? @ -No Were any procedures done? @ -No Diagnosis/symptom? @Patient, suicidal ideation Acute, or Chronic, or Acute on Chronic? @Acute Uncomplicated (without systemic symptoms) or Complicated (systemic symptoms)? @ -Default Side effects of treatment? @ -No Exacerbation, Progression, or Severe Exacerbation? @ -No Poses a threat to life or bodily function? How? (Chest pain, USA, CT, pneumonia, PE, COPD, DKA, ARF, appy, cholecystitis, CVA, Diverticulitis, Homicidal, Suicidal, threat to staff... and all critical care pts) @ -Yes, risk of self-harm - Lab Data Lab Results 09/28/24 Range/Units 17:51 Urine Opiates Screen Detected H (NotDetected) Ur Oxycodone Screen Not Detected (NotDetected) Urine Methadone Screen Not Detected (NotDetected) Ur Barbiturates Screen Not Detected (NotDetected) U Tricyclic Antidepress Not Detected (NotDetected) Ur Phencyclidine Scrn Not Detected (NotDetected) Ur Amphetamines Screen Not Detected (NotDetected) U Methamphetamines Scrn Not Detected (NotDetected) U Benzodiazepines Scrn Detected H (NotDetected) Urine Cocaine Screen Not Detected (NotDetected) U Marijuana (THC) Screen Detected H (NotDetected) Disposition Clinical Impression: Depression, Suicidal ideation Disposition: ADMITTED IP TO THIS [facility] Condition: Stable Is patient prescribed a controlled substance at d/c from ED?: No Referrals: Deshawn Zapata DO [Primary Care Provider] - 1-2 days Time of Disposition: 19:43
[2024-09-28 18:24] LABS: Amphetamine Screen,Urine Not Detected (NotDetected); Barbiturate Screen,Urine Not Detected (NotDetected); Benzodiazepines Screen,Urine Detected (NotDetected); Cocaine Screen,Urine Not Detected (NotDetected); Methadone Screen, Urine Not Detected (NotDetected); Opiate Screen,Urine Detected (NotDetected); Oxycodone Screen, Urine Not Detected (NotDetected); Phencyclidine Screen,Urine Not Detected (NotDetected); Tricyclic Antidepressant,Urine Not Detected (NotDetected); Urn Cannabinoid Scrn Detected (NotDetected)
[2024-09-28] MEDS: HYDROcodone/APAP 5-325MG 1 EACH TAB PO STA (19:50)
[2024-09-28] MEDS: ALPRAZolam 0.5 MG TAB PO STA (19:51)
[2024-09-28] MEDS: ONDANSETRON ODT 4 MG TAB PO STA (20:19)
[2024-09-28] MEDS ORDERED: MAG HYDROX/AL HYDROX/SIMETH 355 ML BOTTLE PO PRN (21:32)
[2024-09-28] MEDS ORDERED: MAGNESIUM HYDROXIDE 2,400 MG/30 ML CUP PO PRN (21:32)
[2024-09-28] MEDS ORDERED: HALOPERIDOL LACTATE 5 MG/ML 1 ML VIAL IM PRN (21:38)
[2024-09-28 22:33] LABS: Appearance,Urine Cloudy (Clear); Bacteria,Urine Rare /hpf; Bilirubin,Urine Negative (Negative); Blood,Urine Moderate (Negative); Color,Urine Yellow; Glucose,Urine (UA) Negative (Negative); Ketones,Urine Negative (Negative); Leukocyte Esterase,Urine Negative (Negative); Mucus,Urine Few /hpf; Nitrite,Urine Negative (Negative); Protein,Urine 1+ (Negative); RBC,Urine 1 /hpf (0-5); Specific Gravity,Urine 1.036 (1.001-1.035); Squamous Epithelial Cell,Urine 13 /hpf (0-4); WBC,Urine 2 /hpf (0-5)
[2024-09-29] MEDS: LORazepam 1 MG TAB PO PRN (00:07)
[2024-09-29] MEDS: AMOXIC-POT CLAV 875-125MG 1 EACH TAB PO SCH (00:07)
--- NOTE | 2024-09-29 00:17 | P.MDCNMH ---
<Celine Baca - Last Filed: 09/29/24 01:20> History of Present Illness H&P Date: 09/28/24 Patient is a 34-year-old female with history of fibromyalgia, ankylosing spondylitis, Sjogren's disease, and poor dentition who presented to the ER with anxiety, depression and suicidal ideation. She is currently in mental health unit. [facility] physicians consulted for medical management. Patient reports she feels somewhat nauseous, but suspects it is due to poor oral intake. Patient denies any chest pain, shortness of breath, abdominal pain, vomiting, urinary or bowel complaints. LABS: UDS was positive for opiates, benzodiazepine, marijuana. COVID-19 was negative. Pertinent positives and negatives as discussed in HPI, a complete review of systems was performed and all other systems are negative. Patient seen and examined at bedside. Physical examination: Vital signs reviewed General: nontoxic, no distress, appears at stated age Derm: warm, dry, intact Head: atraumatic, normocephalic, symmetric Eyes: anicteric sclera Mouth: mucus membranes moist, extremely poor dentition with multiple caries noted, teeth and anterior portion of mouth are black/green and cracked, gingiva is receding Cardiovascular: S1 S2 reg, no murmur Lungs: CTA bilateral, no rhonchi, no rales, no accessory muscle use Abdominal: soft, nontender nondistended Extremities: No cyanosis, clubbing, or pedal edema. Neuro: Alert, Oriented to person, time and place, Gross neurological examination did not reveal any focal deficits. Cranial nerves II to XII grossly intact. Bilateral upper and lower extremity muscle strength intact and sensation intact. Psych: well appearing, appropriate affect Assessment/Plan: Bipolar and borderline personality disorder Patient will remain on mental health unit Management per primary team Ulcerative Gingivitis Continue amoxicillin 875-125 mg every 12 hours for 10 days Salt and soda mouthwash 30 mL 4 times daily as needed May consider viscous lidocaine Initiate soft diet Ensure supplement 3 times daily with meals Nicotine dependence Habitrol 14 mg every 24 hours CODE STATUS: Full code Patient has been medically optimized for discharge. Will continue to follow. Please do not hesitate to contact us. Thank you for this consultation. Past Medical History Past Medical History: Fibromyalgia Additional Past Medical History / Comment(s): ANKYLOSING SPONDYLITIS, NADIR DISC DISEASE. SJogren's, Reynauds' History of Any Multi-Drug Resistant Organisms: None Reported Past Surgical History: No Surgical Hx Reported Past Psychological History: Anxiety, Bipolar, Depression Smoking Status: Current every day smoker Past Alcohol Use History: Occasional Past Drug Use History: Marijuana Medications and Allergies Home Medications Medication Instructions Recorded Confirmed Type ALPRAZolam [Xanax] 0.5 mg PO BID 10/22/18 09/28/24 History HYDROcodone/APAP 5-325MG [[place] 1 tab PO TID PRN 10/22/18 09/28/24 History 5-325] Amoxic-Pot Clav 875-125Mg 1 tab PO Q12HR 10 Days #20 tab 09/28/24 09/28/24 Rx [Augmentin 875-125] Chlorhexidine Gluconate [Peridex] 15 ml PO BID 09/28/24 09/28/24 History FLUoxetine HCL [PROzac] 40 mg PO DAILY 09/28/24 09/28/24 History Ondansetron Odt [Zofran Odt] 4 mg PO BID 09/28/24 09/28/24 History lamoTRIgine [LaMICtal] 100 mg PO DAILY 09/28/24 09/28/24 History Allergies Allergy/AdvReac Type Severity Reaction Status Date / Time Antihistamines - Alkylamine Allergy Anaphylaxis Verified 09/28/24 18:41 sumatriptan [From Imitrex] Allergy Anaphylaxis Verified 09/28/24 18:41 ketorolac [From Toradol] AdvReac Rapid Verified 09/28/24 18:41 Heart Rate prochlorperazine AdvReac Confusion Verified 09/28/24 18:41 [From Compazine] Physical Exam Vitals: Vital Signs Temp Pulse Pulse Resp BP BP Pulse Ox 09/28/24 23:08 97.8 F 76 16 161/99 97 09/28/24 21:52 98 F 79 18 167/98 97 09/28/24 16:55 98 F 81 20 155/100 98 Intake and Output 09/28/24 09/28/24 09/29/24 14:59 22:59 06:59 Other: Weight 66.678 kg 66.791 kg Results Labs: Abnormal Lab Results - Last 24 Hours (Table) 09/28/24 09/28/24 Range/Units 17:51 17:51 Urine Appearance Cloudy H (Clear) Ur Specific [place] 1.036 H (1.001-1.035) Urine Protein 1+ H (Negative) Urine Blood Moderate H (Negative) Ur Squamous Epith Cells 13 H (0-4) /hpf Urine Bacteria Rare H (None) /hpf Urine Mucus Few H (None) /hpf Urine Opiates Screen Detected H (NotDetected) U Benzodiazepines Scrn Detected H (NotDetected) U Marijuana (THC) Screen Detected H (NotDetected) <Asher Becker - Last Filed: 09/29/24 01:31> History of Present Illness I have seen and evaluated the patient today. I Discussed the case with the resident and agree with the resident's findings I edited the assessment and plan as necessary as documented in the resident's note. Physical Exam Vitals: Vital Signs Temp Pulse Pulse Resp BP BP Pulse Ox 09/28/24 23:08 97.8 F 76 16 161/99 97 09/28/24 21:52 98 F 79 18 167/98 97 09/28/24 16:55 98 F 81 20 155/100 98 Intake and Output 09/28/24 09/28/24 09/29/24 14:59 22:59 06:59 Other: Weight 66.678 kg 66.791 kg Cranial Nerve Examination - Cranial Nerves Cranial Nerve II- Optic: Intact Cranial Nerve III- Oculomotor: Intact Cranial Nerve IV- Trochlear: Intact Cranial Nerve V- Trigeminal: Intact Cranial Nerve - Abducens: Intact Cranial Nerve VII- Facial: Intact Cranial Nerve VIII- Auditory: Intact Cranial Nerve IX- Glossopharyngeal: Intact Cranial Nerve X- Vagus: Intact Cranial Nerve XI- Accessory: Intact Cranial Nerve XII- Hypoglossal: Intact Results Labs: Abnormal Lab Results - Last 24 Hours (Table) 09/28/24 09/28/24 Range/Units 17:51 17:51 Urine Appearance Cloudy H (Clear) Ur Specific [place] 1.036 H (1.001-1.035) Urine Protein 1+ H (Negative) Urine Blood Moderate H (Negative) Ur Squamous Epith Cells 13 H (0-4) /hpf Urine Bacteria Rare H (None) /hpf Urine Mucus Few H (None) /hpf Urine Opiates Screen Detected H (NotDetected) U Benzodiazepines Scrn Detected H (NotDetected) U Marijuana (THC) Screen Detected H (NotDetected)
[2024-09-29] MEDS: HYDROcodone/APAP 5-325MG 1 EACH TAB PO PRN (02:46)
[2024-09-29] MEDS: ONDANSETRON ODT 4 MG TAB PO PRN (06:25)
[2024-09-29] MEDS: haloperidoL 5 MG TAB PO PRN (07:08)
[2024-09-29] MEDS: FLUoxetine HCL 20 MG CAP PO SCH (08:43)
[2024-09-29] MEDS: lamoTRIgine 100 MG TAB PO SCH (08:43)
[2024-09-29] MEDS: NICOTINE 14MG/24HR PATCH TRANSDERM SCH (08:43)
[2024-09-29] MEDS: SALT AND SODA MOUTHWASH 1,000 ML PO SCH (09:04)
[2024-09-29] MEDS: LOPERAMIDE 2 MG CAP PO PRN (12:08)
[2024-09-29] MEDS: QUEtiapine 50 MG TAB PO STA (12:47)
[2024-09-29] MEDS: NICOTINE GUM (POLACRILEX) 2 MG GUM BUCCAL PRN (12:47)
--- NOTE | 2024-09-29 12:52 | P.HP ---
Psychiatric H&P - . H&P Date: 09/29/24 History & Physical: Allergies Allergy/AdvReac Type Severity Reaction Status Date / Time Antihistamines - Alkylamine Allergy Anaphylaxis Verified 09/28/24 18:41 sumatriptan from Imitrex Allergy Anaphylaxis Verified 09/28/24 18:41 ketorolac from Toradol AdvReac Rapid Verified 09/28/24 18:41 Heart Rate prochlorperazine AdvReac Confusion Verified 09/28/24 18:41 From Compazine Vital Signs Temp 97.8 F 09/29/24 04:00 Pulse 111 H 09/29/24 09:55 Resp 16 09/29/24 09:55 BP 148/99 09/29/24 09:55 Pulse Ox 96 09/29/24 04:00 FiO2 Intake & Output 09/28/24 09/29/24 09/29/24 18:59 06:59 18:59 Weight 66.678 kg 66.791 kg Laboratory Last Values Urine Color Yellow 09/28/24 17:51 Urine Appearance Cloudy (Clear) H 09/28/24 17:51 Urine pH 6.0 (5.0-8.0) 09/28/24 17:51 Ur Specific [place] 1.036 (1.001-1.035) H 09/28/24 17:51 Urine Protein 1+ (Negative) H 09/28/24 17:51 Urine Glucose (UA) Negative (Negative) 09/28/24 17:51 Urine Ketones Negative (Negative) 09/28/24 17:51 Urine Blood Moderate (Negative) H 09/28/24 17:51 Urine Nitrite Negative (Negative) 09/28/24 17:51 Urine Bilirubin Negative (Negative) 09/28/24 17:51 Urine Urobilinogen 3.0 mg/dL (<2.0) 09/28/24 17:51 Ur Leukocyte Esterase Negative (Negative) 09/28/24 17:51 Urine RBC 1 /hpf (0-5) 09/28/24 17:51 Urine WBC 2 /hpf (0-5) 09/28/24 17:51 Ur Squamous Epith Cells 13 /hpf (0-4) H 09/28/24 17:51 Urine Bacteria Rare /hpf (None) H 09/28/24 17:51 Urine Mucus Few /hpf (None) H 09/28/24 17:51 Urine HCG, Qual Not Detected (Not Detectd) 09/28/24 17:51 Urine Opiates Screen Detected (NotDetected) H 09/28/24 17:51 Ur Oxycodone Screen Not Detected (NotDetected) 09/28/24 17:51 Urine Methadone Screen Not Detected (NotDetected) 09/28/24 17:51 Ur Barbiturates Screen Not Detected (NotDetected) 09/28/24 17:51 U Tricyclic Antidepress Not Detected (NotDetected) 09/28/24 17:51 Ur Phencyclidine Scrn Not Detected (NotDetected) 09/28/24 17:51 Ur Amphetamines Screen Not Detected (NotDetected) 09/28/24 17:51 U Methamphetamines Scrn Not Detected (NotDetected) 09/28/24 17:51 U Benzodiazepines Scrn Detected (NotDetected) H 09/28/24 17:51 Urine Cocaine Screen Not Detected (NotDetected) 09/28/24 17:51 U Marijuana (THC) Screen Detected (NotDetected) H 09/28/24 17:51 SARS-CoV-2 (PCR) Not Detected (Not Detectd) 09/28/24 19:46 09/29/24 12:45 IDENTIFYING DATA: Patient is a 34-year-old female, , lives with , has no kids she is unemployed HPI: Patient presented to the hospital yesterday and was evaluated by EPS nurse and according to note "Pt arrived to ER with spouse d/t fluctuation with emotions. Pt states that seeing other people happy makes her angry. "I can't work, I can't shower, I am not eating". Pt states that she has a lack of motivation. SHe is scared to be alone, "I am done, if you guys don't help me then I will jump into the river". Pt states that she had to have her S.O get the guns out of the home because she was scared of what she would do. "I feel invisible, I can't pull myself out" She states, "what is the point of life". SI with plan and intention to jump into the river. She has a hx of attempts 10 years by knife. Pt admits to HI but not towards any specific person, she states she is just angry at the world. Denies any hallucinations or delusions. Pt has no previous inpatient hx. Denies the use of drugs or etoh. Lacks a support system. Pt is not bathing regularly, not eating, and states that her sleep is poo, but she can't get herself out of bed. Pt is unable to safety plan." Patient was agreeable to speak to tag writer today in the office. Patient was positive for benzodiazepines THC and opiates in her drug screen. Patient claims that she came to the hospital for a "tooth infection". States that she has been dealing with this for the past 1 and half years. 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 Claims that she has seen "every oral surgeon in [place]" and claims that she even flew to [place] to see if she could get help. States that they do not take her insurance and wanted "$6000" to help her with her teeth. States that since coming to the hospital she has been on antibiotics which has been helping. Claims that she was in significant pain. Claims that she was feeling very frustrated and depressed and also anxious when she came into the hospital and did admit to saying that she was suicidal however claims that now she does not. She does appear to be labile at times during the interview. Claims that she has been feeling more depressed, was endorsing suicidal yesterday did not feel safe to return home. Did make claims that she would jump in the river. Claims that her sleep has been on and off about 6 or 7 hours a night, claims that due to her teeth she is not able to eat well however has been drinking Ensure for her meals. Patient denies any current suicidal or homicidal ideations intent or plan. At this time patient denies any auditory or visual hallucinations. Patient denies any flight of ideas racing thoughts and increased in goal directed behavior. Patient admits to using marijuana edibles at nighttime, also claims that she has been smoking cigarettes. Denies any other recreational drug use PAST PSYCHIATRIC HISTORY: Patient has a history of bipolar and borderline personality disorder. Claims that she has been on Prozac and Lamictal taking it every day. Patient denies any previous psychiatric hospitalizations. Claims that she follows up with a Dr. Odell at [facility]. Patient denies any history of suicide attempts in the past. PMH: as per ER note ALLERGIES: as per EMR CHEMICAL DEPENDENCY HISTORY: as per HPI FAMILY PSYCHIATRIC/SUBSTANCE USE HISTORY: Denies SOCIAL HISTORY: Patient was born and raised in [facility]. Claims that she completed high school. 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 Does not have any kids, lives with her . Denies any legal history. MENTAL STATUS EXAM: General Appearance: Patient appears to be short hair, wearing glasses, stated age is alert, directable, and attempts to cooperate. Patient appears to have poor hygiene and grooming. Behavior: Patient is seated without any agitated behavior. Some labilit Speech: Patient's speech is fluent and nonpressured. Rambles at times Mood/Affect: Patient reports their mood is "okay now", affect is congruent and labile Suicidality/Homicidality: Patient denies having any homicidal ideation intent or plan. Denies any suicidal ideations intent or plan Perceptions: Patient denies any visual hallucinations and denies any auditory hallucinations Though content/process: There is no evidence of any delusional thought content and thought process is linear and goal-directed. Was at times, focused on her teeth. Minimizing Memory and concentration: AOX3, grossly intact for the purposes of this session. Can spell "WORLD" backwards Judgment and insight: Poor/impulsive STRENGTHS/WEAKNESSES: strength is that patient is resilient. Weakness is that patient has poor judgment and is impulsive INTELLECT: Average IMPRESSIONS: Mood disorder unspecified, rule out bipolar disorder versus depressive disorder Borderline personality disorder Cannabis use disorder mild Nicotine dependence PLAN: -Patient is admitted under voluntary status to MHU for stabilization of psychiatric symptoms and safety. Patient has signed adult voluntary form and medication consent and is placed in patient's chart. -Medications : Can continue with home dose of Prozac 40 mg daily for mood/anxiety, Lamictal 100 mg daily for mood stabilization/depression. Patient was warned of the possibility of a rash and to continue to monitor. Seroquel 50 mg nightly for mood stabilization/insomnia -Ativan and Haldol PRN for agitation/aggression -Patient was counselled on substance abuse and desired to cut back on use -Patient was informed of the risks, benefits and side effects of the medication and patient verbally consented to taking the medications. Patient signed med consent form and was placed in chart. -Internal Medicine consult to perform medical evaluation and physical. -NRT -nicotine patch and nicotine gum -SW on board for discharge planning. Encourage patient to participate in groups to work on coping skills.
[2024-09-29 14:18] VITALS: BMI 25.2
[2024-09-30] MEDS: QUEtiapine 50 MG TAB PO SCH (03:58)
[2024-09-30 08:34] LABS: Basophils # (A) 0.1 k/uL (0-0.2); Basophils % (A) 1 %; Eosinophils # (A) 0.3 k/uL (0-0.7); Eosinophils % (A) 2 %; HCT 45.8 % (34.0-46.0); HGB 15.5 gm/dL (11.4-16.0); Lymphocytes # (A) 2.3 k/uL (1.0-4.8); Lymphocytes % (A) 20 %; MCH 32.8 pg (25.0-35.0); MCHC 33.9 g/dL (31.0-37.0); MCV 96.7 fL (80.0-100.0); Mean Platelet Volume 7.4; Monocytes # (A) 1.1 k/uL (0-1.0); Monocytes % (A) 10 %; Neutrophils # (A) 7.7 k/uL (1.3-7.7); Neutrophils % (A) 66 %; Platelet Count 362 k/uL (150-450); RBC 4.73 m/uL (3.80-5.40); RDW 14.3 % (11.5-15.5); WBC 11.7 k/uL (3.8-10.6)
[2024-09-30 08:51] LABS: ALT 32 U/L (4-34); AST 32 U/L (14-36); African American GFR (CKD) >90 (>60 ml/min/1.73 sqM); Albumin 5.4 g/dL (3.5-5.0); Alkaline Phosphatase 79 U/L (38-126); Anion Gap 13 mmol/L; Blood Urea Nitrogen 13 mg/dL (7-17); Calcium 10.6 mg/dL (8.4-10.2); Carbon Dioxide 27 mmol/L (22-30); Chloride 98 mmol/L (98-107); Glucose 117 mg/dL (74-99); Non-African American GFR(CKD) >90 (>60 ml/min/1.73 sqM); Potassium 4.6 mmol/L (3.5-5.1); Sodium 138 mmol/L (137-145); Total Bilirubin 1.1 mg/dL (0.2-1.3); Total Protein 8.8 g/dL (6.3-8.2)
--- NOTE | 2024-09-30 12:14 | P.PN ---
Progress Note - Text Progress Note Date: 09/30/24 Interval History: Patient was seen today wandering the hallways and also taking part in group. She was agreeable to speak to marketing copywriter today in the office. States that she is doing better overall with regards to her mood and also anxiety. She did claim that after taking the Seroquel she felt kind of groggy and "out of it" and believes that she slept through the night. She states that the Seroquel also made her feel that her heart was racing and she was noted to be tachycardic. She was agreeable to try Geodon today instead. Continues to endorse anxiety and asking about alternatives to Ativan and Haldol for anxiety, agreeable to try Vistaril. States that she is feeling more optimistic, less impulsive today. States that her will be visiting over the weekend. States that she is having an increase in her appetite. Her teeth pain is also improving. Denying any suicidal homicidal ideations intent or plan, denying any auditory or visual hallucinations. MENTAL STATUS EXAM: General Appearance: Patient appears to be short hair, wearing glasses, stated age is alert, directable, and attempts to cooperate. Patient appears to have improving hygiene and grooming. Poor dentition Behavior: Patient is seated without any agitated behavior. Less labile today Speech: Patient's speech is fluent and nonpressured. Rambles at times, improving Mood/Affect: Patient reports their mood is "better", affect is congruent and less labile Suicidality/Homicidality: Patient denies having any homicidal ideation intent or plan. Denies any suicidal ideations intent or plan Perceptions: Patient denies any visual hallucinations and denies any auditory hallucinations Though content/process: There is no evidence of any delusional thought content and thought process is linear and goal-directed. Memory and concentration: AOX3, grossly intact for the purposes of this session Judgment and insight: Poor/impulsive, improving mildly IMPRESSIONS: Mood disorder unspecified, rule out bipolar disorder versus depressive disorder Borderline personality disorder Cannabis use disorder mild Nicotine dependence PLAN: -Patient is admitted under voluntary status to MHU for stabilization of psychiatric symptoms and safety. Patient has signed adult voluntary form and medication consent and is placed in patient's chart. -Medications : Prozac 40 mg daily for mood/anxiety, Lamictal 100 mg daily for mood stabilization/depression. Patient was warned of the possibility of a rash and to continue to monitor. d/c Seroquel due to increase in anxiety and tachycardia. Start Geodon 20 mg twice daily for mood stabilization. Vistaril every 8 hours as needed for anxiety. -Ativan and Haldol PRN for agitation/aggression -EKG today -NRT -nicotine patch and nicotine gum -SW on board for discharge planning. Encourage patient to participate in groups to work on coping skills. Hopeful for discharge early next week if patient is improving over the weekend.
[2024-09-30] MEDS: ZIPRASIDONE 20 MG CAP PO SCH (12:28)
[2024-09-30] MEDS: LORazepam 0.5 MG TAB PO PRN (12:29)
[2024-09-30] MEDS: LORazepam 2 MG/ML INJ IM PRN (19:47)
[2024-09-30] MEDS: cloNIDine HCL 0.2 MG TAB PO STA (20:01)
[2024-09-30] MEDS: ALPRAZolam 0.5 MG TAB PO STA (20:15)
--- NOTE | 2024-09-30 22:18 | XR ---
EXAMINATION TYPE: XR chest 1V DATE OF EXAM: 09/30/2024 8:40 PM COMPARISON: 02/02/2021 CLINICAL INDICATION: Female, 34 years old with history of Chest pain, TECHNIQUE: XR chest 1V view(s) obtained. FINDINGS: The heart size is normal. The pulmonary vasculature is normal. The lungs are clear. IMPRESSION: 1. No acute pulmonary process. [facility], Workstation: [facility], 09/30/2024 10:16 PM
[2024-10-01] MEDS: ACETAMINOPHEN TAB 325 MG TAB PO PRN (11:28)
--- NOTE | 2024-10-01 12:06 | P.PN ---
Progress Note - Text Progress Note Date: 10/01/24 Interval history: Patient was seen wandering the hallways and was directable and agreeable to s peak with bond writer. she had a towel around her neck and states that it is for comfort. Claims that she had an episode of panic attack yesterday while she was on the phone with her mother. States that her anxiety is still a bit high today, we spoke about different alternatives she was agreeable to try Klonopin today as needed. She was fairly focused on discharge, claims that she is doing a bit better mentally. States that she was able to sleep a bit better last night. At this time patient denies any suicidal or homicidal ideations intent or plan. Denies any Auditory or visual hallucinations. Patient denies any side effects from the medications and has been compliant with meds. Mental status exam: General Appearance: Patient appears to be stated age is alert, directable, and cooperative. Poor dentition, short hair, wearing glasses Behavior: No agitated behavior. Patient is calm and directable fairly cooperative Speech: Patient's speech is fluent and nonpressured. Mood/Affect: Mood is improving mildly, affect is congruent and constricted. Suicidality/Homicidality: Patient denies having any suicidal or homicidal ideation intent or plan. Perceptions: Patient denies any auditory or visual hallucinations. Though content/process: There is no evidence of any delusional thought content and thought process is linear and goal-directed. Focused on her symptoms and discharge Memory and concentration: AOX3, grossly intact for the purposes of this session Judgment and insight: improving mildly Assessment/Plan: Continue with current diagnosis. Patient continues to meet criteria for inpatient psychiatric admission for symptom stabilization and safety. Patient will be maintained on current psychotropic medication regimen, added Klonopin as needed for anxiety discontinue Ativan as needed. Discontinue Geodon. Monitor for medication compliance and for any psychotropic medication side effects. Will continue to monitor ongoing response to treatment. Encouraged participation in milieu. Hopeful for discharge Thursday
[2024-10-01] MEDS: clonazePAM 0.5 MG TAB PO PRN (12:18)
[2024-10-01] MEDS: IBUPROFEN 600 MG TAB PO SCH (12:18)
[2024-10-01] MEDS: IBUPROFEN 600 MG TAB PO PRN (12:20)
[2024-10-01] MEDS: hydrOXYzine pamoate 25 MG CAP PO PRN (16:07)
--- NOTE | 2024-10-02 11:59 | P.PN ---
Progress Note - Text Progress Note Date: 10/02/24 Interval history: Patient was seen wandering the hallways and was directable and agreeable to s peak with group underwriter. Patient states that she still feeling a bit anxious at times however did claim that the Klonopin did help. States that she was able to use it to fall asleep last night. Claims that she has been dealing with chronic insomnia. States that she feels more optimistic today, denying any depression. States that he is having a good time going to group. Has a fair appetite. At this time patient denies any suicidal or homicidal ideations intent or plan. Denies any Auditory or visual hallucinations. Patient denies any side effects from the medications and has been compliant with meds. Mental status exam: General Appearance: Patient appears to be stated age is alert, directable, and cooperative. Poor dentition, short hair, wearing glasses Behavior: No agitated behavior. Patient is calm and directable fairly cooperative Speech: Patient's speech is fluent and nonpressured. Mood/Affect: Mood is improving mildly, affect is congruent and constricted. Suicidality/Homicidality: Patient denies having any suicidal or homicidal ideation intent or plan. Perceptions: Patient denies any auditory or visual hallucinations Though content/process: There is no evidence of any delusional thought content and thought process is linear and goal-directed. Focused on her symptoms an, improving mildly Memory and concentration: AOX3, grossly intact for the purposes of this session Judgment and insight: improving mildly Assessment/Plan: Continue with current diagnosis. Patient continues to meet criteria for inpatient psychiatric admission for symptom stabilization and safety. Patient will be maintained on current psychotropic medication regimen. Monitor for medication compliance and for any psychotropic medication side effects. Will continue to monitor ongoing response to treatment. Encouraged participation in milieu. Hopeful for discharge Thursday
[2024-10-03 07:14] VITALS: BP 127/88; PULSE 104; RESP 14; TEMP 97.9
--- NOTE | 2024-10-03 10:10 | P.DS ---
Providers Date of admission: 09/28/24 21:25 Expected date of discharge: 10/03/24 Attending physician: Alber Doan MD Consults: 09/28/24 21:32 Consult Physician Routine Consulting Provider: Kelvin Roth Consult Reason/Comments: H&P Do you want consulting provider notified?: Yes Primary care physician: Deshawn Zapata DO - Discharge Diagnosis(es) (1) Mood disorder Current Visit: Yes Status: Acute Priority: High (2) Borderline personality disorder Current Visit: Yes Status: Acute Priority: High (3) Panic disorder Current Visit: Yes Status: Acute Priority: High (4) Cannabis use disorder, mild, abuse Current Visit: Yes Status: Acute Priority: Medium (5) Nicotine dependence Current Visit: Yes Status: Acute Priority: Low Hospital Course: Admission HPI: Admission note was completed by greeting card writer " Patient is a 34-year-old female, , lives with , has no kids she is unemployed. Patient presented to the hospital yesterday and was evaluated by EPS nurse and according to note "Pt arrived to ER with spouse d/t fluctuation with emotions. Pt states that seeing other people happy makes her angry. "I can't work, I can't shower, I am not eating". Pt states that she has a lack of motivation. SHe is scared to be alone, "I am done, if you guys don't help me then I will jump into the river". Pt states that she had to have her S.O get the guns out of the home because she was scared of what she would do. "I feel invisible, I can't pull myself out" She states, "what is the point of life". SI with plan and intention to jump into the river. She has a hx of attempts 10 years by knife. Pt admits to HI but not towards any specific person, she states she is just angry at the world. Denies any hallucinations or delusions. Pt has no previous inpatient hx. Denies the use of drugs or etoh. Lacks a support system. Pt is not bathing regularly, not eating, and states that her sleep is poo, but she can't get herself out of bed. Pt is unable to safety plan." Patient was agreeable to speak to greeting card writer today in the office. Patient was positive for benzodiazepines THC and opiates in her drug screen. Patient claims that she came to the hospital for a "tooth infection". States that she has been dealing with this for the past 1 and half years. 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 Claims that she has seen "every oral surgeon in [place]" and claims that she even flew to [place] to see if she could get help. States that they do not take her insurance and wanted "$6000" to help her with her teeth. States that since coming to the hospital she has been on antibiotics which has been helping. Claims that she was in significant pain. Claims that she was feeling very frustrated and depressed and also anxious when she came into the hospital and did admit to saying that she was suicidal however claims that now she does not. She does appear to be labile at times during the interview. Claims that she has been feeling more depressed, was endorsing suicidal yesterday did not feel safe to return home. Did make claims that she would jump in the river. Claims that her sleep has been on and off about 6 or 7 hours a night, claims that due to her teeth she is not able to eat well however has been drinking Ensure for her meals. Patient denies any current suicidal or homicidal ideations intent or plan. At this time patient denies any auditory or visual hallucinations. Patient denies any flight of ideas racing thoughts and increased in goal directed behavior. Patient admits to using marijuana edibles at nighttime, also claims that she has been smoking cigarettes. Denies any other recreational drug use" Hospital course: Upon admission to the unit patient was directable and agreeable to commence treatment and signed adult voluntary form. Patient got along well with other patients on the unit and followed unit protocol. Patient was compliant with the medications and denied any side effects throughout hospital course. Patient was started on Prozac home dose 40 mg daily for mood/anxiety, home dose of Lamictal 100 mg daily for mood stabilization/depression. Patient was monitoring and did not report a rash. Patient was tried on Seroquel and also Geodon however due to intolerability/side effects were discontinued. Klonopin 0.5 mg twice daily as needed for anxiety and Vistaril as needed for anxiety. Patient spoke of her stressors and engaged in therapy both group and individual. Patient was also seen by medical team for history and physical exam. Patient was started on oral antibiotics and mouthwash for dental infections. Throughout the course of the hospitalization patient gradually improved with regards to mood, anxiety, suicidal thoughts, sleep and returned back to their baseline level of functioning. On the day of discharge patient denied any suicidal or homicidal ideations intent or plan denied any auditory or visual hallucinations. Patient endorsed wanting to live for their health and family. The patient denied any access to guns or weapons. Patient denied any paranoia and did not endorse any delusions. Patient does have a significant history of substance abuse and was counseled on abstaining from all substances including alcohol and marijuana. Patient elected to do outpatient substance use treatment program through their outpatient provider.. Patient was also counseled on the medications and need for regular compliance and was encouraged to follow-up with their outpatient appointment for mental health and also for primary care. Prior to discharge a family meeting will be arranged by social sciences chair to answer any questions and ensure safety upon discharge incuding making sure that guns/weapons are either removed from the home or locked away. Mental status exam: General Appearance: Patient appears to be have short hair, wearing glasses, poor dentition, stated age is alert, pleasant, and cooperative. Patient is in no acute distress and has improved hygiene and grooming Behavior: Patient is calmly seated without any agitated behavior. Speech: Patient's speech is fluent and nonpressured. Mood/Affect: Patient reports their mood is "good", affect is congruent and euthymic. Suicidality/Homicidality: Patient denies having any suicidal or homicidal ideation intent or plan. Perceptions: Patient denies any auditory or visual hallucinations. Though content/process: There is no evidence of any delusional thought content and thought process is linear and goal-directed. More future oriented Memory and concentration: AOX3, grossly intact for the purposes of this session. Can spell "WORLD" backwards correctly. Judgment and insight: improved with guarded prognosis Impression: Mood disorder unspecified Panic disorder Borderline personality disorder Cannabis use disorder mild abuse Nicotine dependence Plan: -Continue with discharge today as patient has improved and stabilized psychiatrically and is not currently an imminent threat to themself and/or others. Patient will remain at chronically elevated risk for harm to self and/or others due to their impulsivity. -Continue medications: Prozac 40 mg daily for mood/anxiety, Lamictal 100 mg daily for mood stabilization/depression, Vistaril 50 mg daily as needed for anxiety, Klonopin 0.5 mg twice daily as needed for severe anxiety -Patient was counseled on the need for medication compliance and appropriate follow-up at mental health and also primary care for medical issues. Patient verbalized understanding and agreed. -Social work to arrange for and conduct family meeting to ensure safety upon discharge and answer any questions/concerns. also to ensure safe home environment that guns/weapons are either removed from the home or locked away. Social work also to arrange for patients follow up appointments with [facility] for psychiatric care along with follow up with primary care provider. -Patient counseled on abstaining from recreational drugs and marijuana and alcohol. Was informed/educated on the adverse effects on their physical and mental health. Patient verbally agreed and understood. -Patient was instructed to return to the hospital or seek immediate medical care if their psychiatric or medical symptoms do worsen or reoccur. Allergies Allergy/AdvReac Type Severity Reaction Status Date / Time Antihistamines - Alkylamine Allergy Anaphylaxis Verified 09/28/24 18:41 sumatriptan [From Imitrex] Allergy Anaphylaxis Verified 09/28/24 18:41 ketorolac [From Toradol] AdvReac Rapid Verified 09/28/24 18:41 Heart Rate prochlorperazine AdvReac Confusion Verified 09/28/24 18:41 [From Compazine] Laboratory Results WBC 11.7 k/uL (3.8-10.6) H 09/30/24 07:59 RBC 4.73 m/uL (3.80-5.40) 09/30/24 07:59 Hgb 15.5 gm/dL (11.4-16.0) 09/30/24 07:59 Hct 45.8 % (34.0-46.0) 09/30/24 07:59 MCV 96.7 fL (80.0-100.0) 09/30/24 07:59 MCH 32.8 pg (25.0-35.0) 09/30/24 07:59 MCHC 33.9 g/dL (31.0-37.0) 09/30/24 07:59 RDW 14.3 % (11.5-15.5) 09/30/24 07:59 Plt Count 362 k/uL (150-450) 09/30/24 07:59 MPV 7.4 09/30/24 07:59 Neutrophils % 66 % 09/30/24 07:59 Lymphocytes % 20 % 09/30/24 07:59 Monocytes % 10 % 09/30/24 07:59 Eosinophils % 2 % 09/30/24 07:59 Basophils % 1 % 09/30/24 07:59 Neutrophils # 7.7 k/uL (1.3-7.7) 09/30/24 07:59 Lymphocytes # 2.3 k/uL (1.0-4.8) 09/30/24 07:59 Monocytes # 1.1 k/uL (0-1.0) H 09/30/24 07:59 Eosinophils # 0.3 k/uL (0-0.7) 09/30/24 07:59 Basophils # 0.1 k/uL (0-0.2) 09/30/24 07:59 Sodium 138 mmol/L (137-145) 09/30/24 07:59 Potassium 4.6 mmol/L (3.5-5.1) 09/30/24 07:59 Chloride 98 mmol/L (98-107) 09/30/24 07:59 Carbon Dioxide 27 mmol/L (22-30) 09/30/24 07:59 Anion Gap 13 mmol/L 09/30/24 07:59 BUN 13 mg/dL (7-17) 09/30/24 07:59 Creatinine 0.77 mg/dL (0.52-1.04) 09/30/24 07:59 Est GFR (CKD-EPI)AfAm >90 (>60 ml/min/1.73 sqM) 09/30/24 07:59 Est GFR (CKD-EPI)NonAf >90 (>60 ml/min/1.73 sqM) 09/30/24 07:59 Glucose 117 mg/dL (74-99) H 09/30/24 07:[address] Glu mg/dL 100 mg/dL 09/30/24 07:59 Hemoglobin A1c 5.1 % (<=6.0) 09/30/24 07:59 Calcium 10.6 mg/dL (8.4-10.2) H 09/30/24 07:59 Total Bilirubin 1.1 mg/dL (0.2-1.3) 09/30/24 07:59 AST 32 U/L (14-36) 09/30/24 07:59 ALT 32 U/L (4-34) 09/30/24 07:59 Alkaline Phosphatase 79 U/L (38-126) 09/30/24 07:59 Troponin I <0.012 ng/mL (0.000-0.034) 10/01/24 04:34 Total Protein 8.8 g/dL (6.3-8.2) H 09/30/24 07:59 Albumin 5.4 g/dL (3.5-5.0) H 09/30/24 07:59 TSH 2.840 mIU/L (0.465-4.680) 09/30/24 07:59 Urine Color Yellow 09/28/24 17:51 Urine Appearance Cloudy (Clear) H 09/28/24 17:51 Urine pH 6.0 (5.0-8.0) 09/28/24 17:51 Ur Specific [place] 1.036 (1.001-1.035) H 09/28/24 17:51 Urine Protein 1+ (Negative) H 09/28/24 17:51 Urine Glucose (UA) Negative (Negative) 09/28/24 17:51 Urine Ketones Negative (Negative) 09/28/24 17:51 Urine Blood Moderate (Negative) H 09/28/24 17:51 Urine Nitrite Negative (Negative) 09/28/24 17:51 Urine Bilirubin Negative (Negative) 09/28/24 17:51 Urine Urobilinogen 3.0 mg/dL (<2.0) 09/28/24 17:51 Ur Leukocyte Esterase Negative (Negative) 09/28/24 17:51 Urine RBC 1 /hpf (0-5) 09/28/24 17:51 Urine WBC 2 /hpf (0-5) 09/28/24 17:51 Ur Squamous Epith Cells 13 /hpf (0-4) H 09/28/24 17:51 Urine Bacteria Rare /hpf (None) H 09/28/24 17:51 Urine Mucus Few /hpf (None) H 09/28/24 17:51 Urine HCG, Qual Not Detected (Not Detectd) 09/28/24 17:51 Urine Opiates Screen Detected (NotDetected) H 09/28/24 17:51 Ur Oxycodone Screen Not Detected (NotDetected) 09/28/24 17:51 Urine Methadone Screen Not Detected (NotDetected) 09/28/24 17:51 Ur Barbiturates Screen Not Detected (NotDetected) 09/28/24 17:51 Lamotrigine 1.9 ug/mL (2.0-15.0) L 09/30/24 07:59 U Tricyclic Antidepress Not Detected (NotDetected) 09/28/24 17:51 Ur Phencyclidine Scrn Not Detected (NotDetected) 09/28/24 17:51 Ur Amphetamines Screen Not Detected (NotDetected) 09/28/24 17:51 U Methamphetamines Scrn Not Detected (NotDetected) 09/28/24 17:51 U Benzodiazepines Scrn Detected (NotDetected) H 09/28/24 17:51 Urine Cocaine Screen Not Detected (NotDetected) 09/28/24 17:51 U Marijuana (THC) Screen Detected (NotDetected) H 09/28/24 17:51 SARS-CoV-2 (PCR) Not Detected (Not Detectd) 09/28/24 19:46 Vital Signs Temp 97.9 F 10/03/24 06:46 Pulse 104 H 10/03/24 06:46 Resp 14 10/03/24 06:46 BP 127/88 10/03/24 06:46 Pulse Ox 97 10/03/24 06:46 FiO2 Intake & Output 10/02/24 10/03/24 10/03/24 18:59 06:59 18:59 Weight 67.676 kg Patient Condition at Discharge: Stable Plan - Discharge Summary Discharge Rx Participant: No New Discharge Prescriptions: New Nicotine 14Mg/24Hr Patch [Habitrol] 1 patch TRANSDERM DAILY 14 Days #14 patch Nicotine Gum (Polacrilex) [Nicorette] 2 mg BUCCAL Q4HR PRN 30 Days #180 pieceofgum PRN Reason: Nicotine Cravings hydrOXYzine pamoate [Vistaril] 50 mg PO DAILY PRN 30 Days #60 cap PRN Reason: Anxiety Loperamide [Imodium] 2 mg PO QID PRN cap PRN Reason: Diarrhea clonazePAM [KlonoPIN] 0.5 mg PO BID PRN 10 Days #20 tab PRN Reason: Anxiety Ibuprofen [Motrin] 600 mg PO Q6HR PRN tab PRN Reason: Pain Acetaminophen Tab [Tylenol] 650 mg PO Q4HR PRN tab PRN Reason: Mild Pain (Scale 1 To 3) Ondansetron Odt [Zofran ODT] 4 mg PO BID PRN 28 Days #14 tab PRN Reason: Nausea Continue HYDROcodone/APAP 5-325MG [[place] 5-325] 1 tab PO TID PRN PRN Reason: Pain Amoxic-Pot Clav 875-125Mg [Augmentin 875-125] 1 tab PO Q12HR 7 Days #14 tab Chlorhexidine Gluconate [Peridex] 15 ml PO BID 30 Days #1 ml lamoTRIgine [LaMICtal] 100 mg PO DAILY 30 Days #30 tab FLUoxetine HCL [PROzac] 40 mg PO DAILY 30 Days #30 cap Discontinued ALPRAZolam [Xanax] 0.5 mg PO BID Ondansetron Odt [Zofran Odt] 4 mg PO BID Discharge Medication List HYDROcodone/APAP 5-325MG [[place] 5-325] 1 tab PO TID PRN 10/22/18 [History] Acetaminophen Tab [Tylenol] 650 mg PO Q4HR PRN tab 10/03/24 [Rx] Amoxic-Pot Clav 875-125Mg [Augmentin 875-125] 1 tab PO Q12HR 7 Days #14 tab 10/03/24 [Rx] Chlorhexidine Gluconate [Peridex] 15 ml PO BID 30 Days #1 ml 10/03/24 [Rx] FLUoxetine HCL [PROzac] 40 mg PO DAILY 30 Days #30 cap 10/03/24 [Rx] Ibuprofen [Motrin] 600 mg PO Q6HR PRN tab 10/03/24 [Rx] Loperamide [Imodium] 2 mg PO QID PRN cap 10/03/24 [Rx] Nicotine 14Mg/24Hr Patch [Habitrol] 1 patch TRANSDERM DAILY 14 Days #14 patch 10/03/24 [Rx] Nicotine Gum (Polacrilex) [Nicorette] 2 mg BUCCAL Q4HR PRN 30 Days #180 pieceofgum 10/03/24 [Rx] Ondansetron Odt [Zofran ODT] 4 mg PO BID PRN 28 Days #14 tab 10/03/24 [Rx] clonazePAM [KlonoPIN] 0.5 mg PO BID PRN 10 Days #20 tab 10/03/24 [Rx] hydrOXYzine pamoate [Vistaril] 50 mg PO DAILY PRN 30 Days #60 cap 10/03/24 [Rx] lamoTRIgine [LaMICtal] 100 mg PO DAILY 30 Days #30 tab 10/03/24 [Rx] Follow up Appointment(s)/Referral(s): [facility] [Outside] - 10/03/24 6:00 pm (10/03 @ 18:00 with Isabella De Los Santos 10/14 @ 13:[address] Doe) Deshawn Zapata DO [Primary Care Provider] - 1-2 days Patient Instructions/Handouts: How to Stop Smoking (DC), Mood Disorders (DC) Activity/Diet/Wound Care/Special Instructions: [facility] Discharge Info Avoid the use of street drugs and alcohol. Take all medications as prescribed. When you are in need of refills on your medications, please contact your outpatient medical provider and/or outpatient psychiatrist. Please go to your scheduled outpatient appointments for aftercare treatment. If symptoms return or become worse, call the crisis line at or and/or visit the nearest emergency room for assistance. National Suicide and Crisis Lifeline - call or text 344 Discharge Disposition: HOME SELF-CARE
== END 2024-10-03 11:51 | disposition home or self-care (01) | DRG 751 ==
LOC: EC 16:50 → 3MHU 21:25
PROVIDERS: ADMIT Psychiatry & Neurology Psychiatry; ATTEND Psychiatry & Neurology Psychiatry
DX: F39 Unspecified mood [affective] disorder (principal); F12.10 Cannabis abuse, uncomplicated; F31.9 Bipolar disorder, unspecified; F41.0 Panic disorder [episodic paroxysmal anxiety]; F60.3 Borderline personality disorder; F11.10 Opioid abuse, uncomplicated; R45.851 Suicidal ideations; F13.10 Sedative, hypnotic or anxiolytic abuse, uncomplicated; K05.10 Chronic gingivitis, plaque induced; M35.00 Sjogren syndrome, unspecified; Z11.52 Encounter for screening for COVID-19; M79.7 Fibromyalgia; I73.00 Raynaud's syndrome without gangrene; Z79.899 Other long term (current) drug therapy; Z88.8 Allergy status to other drugs, medicaments and biological substances; M45.9 Ankylosing spondylitis of unspecified sites in spine; Z71.51 Drug abuse counseling and surveillance of drug abuser; Z71.6 Tobacco abuse counseling
CPT/HCPCS: 71045; 80053; 80175; 80306; 81001; 81025; 82075; 83036; 84443; 84484; 85025; 87635; 93005; 96372; 99285